=== PATIENT | male | born 1955 | race Caucasian/White ===

== ENCOUNTER 2020-03-09 16:02 | Outpatient (REF) | payer OTHER, SELFPAY ==
[2020-03-09 16:51] LABS: INTERNATIONAL NORM RATIO 2.5 (0.9-1.1); Prothrombin Time 29.5 SEC (10.8-13.0)
== END 2020-03-09 16:03 | disposition home or self-care (01) ==
LOC: HO.LABR 16:02
PROVIDERS: PCP Internal Medicine; Visit Provider Internal Medicine
DX: I48.91 Unspecified atrial fibrillation (principal)
CPT/HCPCS: 36415; 85610

== ENCOUNTER 2020-03-23 16:34 | Outpatient (REF) | payer OTHER, SELFPAY ==
[2020-03-23 17:33] LABS: INTERNATIONAL NORM RATIO 1.8 (0.9-1.1); Prothrombin Time 21.1 SEC (10.8-13.0)
== END 2020-03-23 16:35 | disposition home or self-care (01) ==
LOC: HO.LABR 16:34
PROVIDERS: PCP Internal Medicine; Visit Provider Internal Medicine
DX: I48.91 Unspecified atrial fibrillation (principal)
CPT/HCPCS: 36415; 85610

== ENCOUNTER 2020-04-06 16:45 | Outpatient (REF) | payer OTHER, SELFPAY ==
[2020-04-06 17:48] LABS: MANUAL DIFF FLAG NO
[2020-04-06 17:49] LABS: Basophils Percent Auto 0.4 % (0-2); Eosinophils Absolute Auto 0.1 X10*3/uL (0.0-0.4); Eosinophils Percent Auto 1.4 % (0-4); Hematocrit 45.4 % (42-52); Hemoglobin 15.3 g/dl (14.0-18.0); Imm Gran Abs Auto 0.03 X10*3/uL (0.00-0.03); Imm Gran Pct Auto 0.4 % (0.0-0.4); Lymphocytes Absolute Auto 2.5 X10*3/uL (1.2-4.9); Lymphocytes Percent Auto 31.9 % (20-40); Mean Corpuscular HGB Conc 33.7 g/dl (31.0-36.0); Mean Corpuscular Hemoglobin 32.3 pg (27.0-33.0); Mean Corpuscular Volume 95.8 fL (80-98); Mean Platelet Volume 10.5 fL (9.4-12.4); Monocytes Absolute Auto 0.9 X10*3/uL (0.1-1.2); Neutrophils Absolute Auto 4.4 X10*3/uL (2.0-8.3); Neutrophils Percent Auto 54.9 % (45-73); Platelet Count 250 X10*3/uL (160-400); Red Blood Count 4.74 X10*6/uL (4.60-5.80); Red Cell Distribution Width 12.3 % (11.0-16.0); White Blood Count 7.9 X10*3/uL (4.8-10.8)
[2020-04-06 17:58] LABS: INTERNATIONAL NORM RATIO 2.4 (0.9-1.1); Prothrombin Time 28.6 SEC (10.8-13.0)
[2020-04-06 18:18] LABS: Alanine Aminotransferase 31 U/L (0-40); Albumin Level 4.2 g/dL (3.5-5.0); Alkaline Phosphatase 106 U/L (39-117); Anion Gap 14 (12-20); Aspartate Amino Transferase 28 U/L (5-37); Bilirubin Total 0.6 mg/dL (0.0-1.0); Blood Urea Nitrogen 13 mg/dL (9-16); Calcium 8.6 mg/dL (8.4-10.2); Carbon Dioxide 28 mmol/L (22-29); Chloride 100 mmol/L (96-108); Estimated Glomerular Filt Rate > 60; Glucose Random 88 mg/dL (60-115); Potassium 4.5 mmol/l (3.3-5.1); Sodium 137 mmol/L (135-145); Total Protein 6.9 g/dL (6.5-8.0)
== END 2020-04-06 16:46 | disposition home or self-care (01) ==
LOC: HO.LABR 16:45
PROVIDERS: PCP Internal Medicine; Visit Provider Internal Medicine
DX: I48.91 Unspecified atrial fibrillation (principal); I10 Essential (primary) hypertension; G47.33 Obstructive sleep apnea (adult) (pediatric); E78.00 Pure hypercholesterolemia, unspecified
CPT/HCPCS: 36415; 80053; 85025; 85610

== ENCOUNTER 2020-04-27 16:06 | Outpatient (REF) | payer OTHER, SELFPAY ==
[2020-04-27 16:48] LABS: INTERNATIONAL NORM RATIO 1.8 (0.9-1.1); Prothrombin Time 21.7 SEC (10.8-13.0)
== END 2020-04-27 16:07 | disposition home or self-care (01) ==
LOC: HO.LABR 16:06
PROVIDERS: PCP Internal Medicine; Visit Provider Internal Medicine
DX: I48.91 Unspecified atrial fibrillation (principal)
CPT/HCPCS: 36415; 85610

== ENCOUNTER 2020-05-10 16:15 | Outpatient (REF) | payer OTHER, SELFPAY ==
[2020-05-10 17:37] LABS: INTERNATIONAL NORM RATIO 2.8 (0.9-1.1); Prothrombin Time 33.1 SEC (10.8-13.0)
== END 2020-05-10 16:16 | disposition home or self-care (01) ==
LOC: HO.LABR 16:15
PROVIDERS: PCP Internal Medicine; Visit Provider Internal Medicine
DX: I48.91 Unspecified atrial fibrillation (principal)
CPT/HCPCS: 36415; 85610

== ENCOUNTER 2020-05-24 16:18 | Outpatient (REF) | payer OTHER, SELFPAY ==
[2020-05-24 17:27] LABS: INTERNATIONAL NORM RATIO 3.1 (0.9-1.1); Prothrombin Time 37.7 SEC (10.8-13.0)
== END 2020-05-24 16:19 | disposition home or self-care (01) ==
LOC: HO.LABR 16:18
PROVIDERS: PCP Internal Medicine; Visit Provider Internal Medicine
DX: I48.91 Unspecified atrial fibrillation (principal)
CPT/HCPCS: 36415; 85610

== ENCOUNTER 2020-06-08 15:01 | Outpatient (REF) | payer OTHER, SELFPAY ==
[2020-06-08 15:40] LABS: INTERNATIONAL NORM RATIO 2.6 (0.9-1.1); Prothrombin Time 31.4 SEC (10.8-13.0)
== END 2020-06-08 15:02 | disposition home or self-care (01) ==
LOC: HO.LABR 15:01
PROVIDERS: PCP Internal Medicine; Visit Provider Internal Medicine
DX: I48.91 Unspecified atrial fibrillation (principal)
CPT/HCPCS: 36415; 85610

== ENCOUNTER 2020-06-29 15:47 | Outpatient (REF) | payer OTHER, SELFPAY ==
[2020-06-29 18:38] LABS: INTERNATIONAL NORM RATIO 1.7 (0.9-1.1)
== END 2020-06-29 15:48 | disposition home or self-care (01) ==
LOC: HO.LABR 15:47
PROVIDERS: PCP Internal Medicine; Visit Provider Internal Medicine
DX: I48.91 Unspecified atrial fibrillation (principal)
CPT/HCPCS: 36415; 85610

== ENCOUNTER 2020-07-14 15:36 | Outpatient (REF) | payer OTHER, SELFPAY ==
[2020-07-14 16:19] LABS: Prothrombin Time 24.3 SEC (10.8-13.0)
== END 2020-07-14 15:37 | disposition home or self-care (01) ==
LOC: HO.LABR 15:36
PROVIDERS: PCP Internal Medicine; Visit Provider Internal Medicine
DX: I48.91 Unspecified atrial fibrillation (principal)
CPT/HCPCS: 36415; 85610

== ENCOUNTER 2020-08-02 15:57 | Outpatient (REF) | payer OTHER, SELFPAY ==
[2020-08-02 17:10] LABS: INTERNATIONAL NORM RATIO 2.6 (0.9-1.1); Prothrombin Time 30.6 SEC (10.8-13.0)
== END 2020-08-02 15:58 | disposition home or self-care (01) ==
LOC: HO.LABR 15:57
PROVIDERS: PCP Internal Medicine; Visit Provider Internal Medicine
DX: I48.91 Unspecified atrial fibrillation (principal)
CPT/HCPCS: 36415; 85610

== ENCOUNTER 2020-08-16 16:03 | Outpatient (REF) | payer OTHER, SELFPAY ==
[2020-08-16 17:01] LABS: INTERNATIONAL NORM RATIO 2.3 (0.9-1.1)
== END 2020-08-16 16:04 | disposition home or self-care (01) ==
LOC: HO.LABR 16:03
PROVIDERS: PCP Internal Medicine; Visit Provider Internal Medicine
DX: I48.91 Unspecified atrial fibrillation (principal)
CPT/HCPCS: 36415; 85610

== ENCOUNTER 2020-09-07 15:49 | Outpatient (REF) | payer OTHER, SELFPAY ==
[2020-09-07 16:29] LABS: INTERNATIONAL NORM RATIO 1.9 (0.9-1.1); Prothrombin Time 22.5 SEC (10.8-13.0)
== END 2020-09-07 15:50 | disposition home or self-care (01) ==
LOC: HO.LABR 15:49
PROVIDERS: PCP Internal Medicine; Visit Provider Internal Medicine
DX: I48.91 Unspecified atrial fibrillation (principal)
CPT/HCPCS: 36415; 85610

== ENCOUNTER 2020-09-28 15:58 | Outpatient (REF) | payer OTHER, SELFPAY ==
[2020-09-28 16:52] LABS: Prothrombin Time 23.5 SEC (10.8-13.0)
== END 2020-09-28 15:59 | disposition home or self-care (01) ==
LOC: HO.LABR 15:58
PROVIDERS: PCP Internal Medicine; Visit Provider Internal Medicine
DX: I48.91 Unspecified atrial fibrillation (principal)
CPT/HCPCS: 36415; 85610

== ENCOUNTER 2020-10-18 16:54 | Outpatient (REF) | payer OTHER, SELFPAY ==
[2020-10-18 17:23] LABS: INTERNATIONAL NORM RATIO 1.9 (0.9-1.1); Prothrombin Time 22.6 SEC (10.8-13.0)
== END 2020-10-18 16:55 | disposition home or self-care (01) ==
LOC: HO.LABR 16:54
PROVIDERS: PCP Internal Medicine; Visit Provider Internal Medicine
DX: I48.91 Unspecified atrial fibrillation (principal)
CPT/HCPCS: 36415; 85610

== ENCOUNTER 2020-11-16 15:57 | Outpatient (REF) | payer OTHER, SELFPAY ==
[2020-11-16 16:56] LABS: INTERNATIONAL NORM RATIO 2.4 (0.9-1.1); Prothrombin Time 28.6 SEC (10.8-13.0)
== END 2020-11-16 15:58 | disposition home or self-care (01) ==
LOC: HO.LABR 15:57
PROVIDERS: PCP Internal Medicine; Visit Provider Internal Medicine
DX: I48.91 Unspecified atrial fibrillation (principal)
CPT/HCPCS: 36415; 85610

== ENCOUNTER 2020-12-07 15:50 | Outpatient (REF) | payer OTHER, SELFPAY ==
[2020-12-07 16:20] LABS: INTERNATIONAL NORM RATIO 1.7 (0.9-1.1); Prothrombin Time 20.7 SEC (10.8-13.0)
== END 2020-12-07 15:51 | disposition home or self-care (01) ==
LOC: HO.LABR 15:50
PROVIDERS: PCP Internal Medicine; Visit Provider Internal Medicine
DX: I48.91 Unspecified atrial fibrillation (principal)
CPT/HCPCS: 36415; 85610

== ENCOUNTER 2020-12-19 16:20 | Outpatient (REF) | payer OTHER, SELFPAY ==
[2020-12-19 17:40] LABS: INTERNATIONAL NORM RATIO 2.3 (0.9-1.1); Prothrombin Time 27.2 SEC (9.9-13.0)
== END 2020-12-19 16:21 | disposition home or self-care (01) ==
LOC: HO.LABR 16:20
PROVIDERS: PCP Internal Medicine; Visit Provider Internal Medicine
DX: I48.91 Unspecified atrial fibrillation (principal)
CPT/HCPCS: 36415; 85610

== ENCOUNTER 2021-01-10 15:08 | Outpatient (REF) | payer OTHER, SELFPAY ==
[2021-01-10 15:40] LABS: MANUAL DIFF FLAG NO
[2021-01-10 15:42] LABS: Basophils Percent Auto 0.4 % (0-2); Eosinophils Absolute Auto 0.1 X10*3/uL (0.0-0.4); Eosinophils Percent Auto 1.1 % (0-4); Hematocrit 44.5 % (42-52); Hemoglobin 15.2 g/dl (14.0-18.0); Imm Gran Abs Auto 0.02 X10*3/uL (0.00-0.03); Imm Gran Pct Auto 0.3 % (0.0-0.4); Lymphocytes Absolute Auto 2.1 X10*3/uL (1.2-4.9); Mean Corpuscular HGB Conc 34.2 g/dl (31.0-36.0); Mean Corpuscular Hemoglobin 31.9 pg (27.0-33.0); Mean Corpuscular Volume 93.3 fL (80-98); Mean Platelet Volume 10.1 fL (9.4-12.4); Monocytes Absolute Auto 0.8 X10*3/uL (0.1-1.2); Monocytes Percent Auto 11.3 % (2-11); Neutrophils Percent Auto 56.9 % (45-73); Platelet Count 212 X10*3/uL (160-400); Red Blood Count 4.77 X10*6/uL (4.60-5.80); Red Cell Distribution Width 12.4 % (11.0-16.0); White Blood Count 7.1 X10*3/uL (4.8-10.8)
[2021-01-10 15:47] LABS: INTERNATIONAL NORM RATIO 1.8 (0.9-1.1); Prothrombin Time 20.9 SEC (9.9-13.0)
[2021-01-10 16:08] LABS: Alanine Aminotransferase 29 U/L (0-40); Albumin Level 4.3 g/dL (3.5-5.0); Alkaline Phosphatase 101 U/L (39-117); Anion Gap 15 (12-20); Aspartate Amino Transferase 24 U/L (5-37); Bilirubin Total 0.8 mg/dL (0.0-1.0); Blood Urea Nitrogen 12 mg/dL (9-16); Calcium 9.1 mg/dL (8.4-10.2); Carbon Dioxide 26 mmol/L (22-29); Chloride 102 mmol/L (96-108); Cholesterol 196 mg/dL; Estimated Glomerular Filt Rate > 60; Glucose Fasting 109 mg/dL (60-99); HDL Cholesterol 53 mg/dL; LDL Cholesterol Calculated 115 mg/dl; Potassium 4.7 mmol/L (3.3-5.1); Sodium 138 mmol/L (135-145); Triglycerides 142 mg/dL
[2021-01-10 16:27] LABS: Prostate Specific Antigen 1.49 ng/mL (<0.05-4.0)
== END 2021-01-10 15:09 | disposition home or self-care (01) ==
LOC: HO.LAB 15:08
PROVIDERS: PCP Internal Medicine; Visit Provider Internal Medicine
DX: Z00.00 Encounter for general adult medical examination without abnormal findings (principal); Z12.5 Encounter for screening for malignant neoplasm of prostate
CPT/HCPCS: 36415; 80053; 80061; 84153; 85025; 85610

== ENCOUNTER 2021-02-08 16:02 | Outpatient (REF) | payer OTHER, SELFPAY ==
[2021-02-08 16:55] LABS: Prothrombin Time 22.5 SEC (9.9-13.0)
== END 2021-02-08 16:03 | disposition home or self-care (01) ==
LOC: HO.LABR 16:02
PROVIDERS: PCP Internal Medicine; Visit Provider Internal Medicine
DX: I48.91 Unspecified atrial fibrillation (principal)
CPT/HCPCS: 36415; 85610

== ENCOUNTER 2021-03-16 16:27 | Outpatient (REF) | payer OTHER, SELFPAY ==
[2021-03-16 17:19] LABS: INTERNATIONAL NORM RATIO 1.9 (0.9-1.1); Prothrombin Time 22.2 SEC (9.9-13.0)
== END 2021-03-16 16:28 | disposition home or self-care (01) ==
LOC: HO.LABR 16:27
PROVIDERS: PCP Internal Medicine; Visit Provider Internal Medicine
DX: I48.91 Unspecified atrial fibrillation (principal)
CPT/HCPCS: 36415; 85610

== ENCOUNTER 2021-04-19 15:44 | Outpatient (REF) | payer OTHER, SELFPAY ==
[2021-04-19 16:18] LABS: INTERNATIONAL NORM RATIO 2.4 (0.9-1.1); Prothrombin Time 27.4 SEC (9.9-13.0)
== END 2021-04-19 15:45 | disposition home or self-care (01) ==
LOC: HO.LABR 15:44
PROVIDERS: PCP Internal Medicine; Visit Provider Internal Medicine
DX: I48.91 Unspecified atrial fibrillation (principal)
CPT/HCPCS: 36415; 85610

== ENCOUNTER 2021-05-16 11:57 | Day surgery (SDC) | payer OTHER, SELFPAY ==
[2021-05-09 15:08] VITALS: BMI 37.1
--- NOTE | 2021-05-15 09:56 | P.CONAN_ITS ---
Documented by User: Jing Heath NP 05/15/21 09:58 HPI - Anesthesia Eval Consult details Narrative: 65yo M for Colonoscopy Warfarin for afib [facility] Past Medical History Medical History (Updated 05/09/21 @ 15:01 by Pema Alcantar RN) Atrial fibrillation Elevated cholesterol History of cardioversion HTN (hypertension) Sleep apnea Surgical History Surgical History (Updated 05/09/21 @ 14:55 by Pema Alcantar RN) History of back surgery Social History Social History Patient Tobacco Use Status: Tobacco use Unknown Advance Directives Information Provided: Yes Advance Directives on File: No Meds Allergies Allergy/AdvReac Type Severity Reaction Status Date / Time No Known Allergies Allergy Verified 05/09/21 14:55 [No Known Allergies*] Home Medications Medication Instructions Recorded Confirmed Last Taken Type atorvastatin 40 mg tablet 1 tab PO BEDTIME 05/09/21 05/09/21 Unknown History diltiazem HCl 120 mg 120 mg PO BID 05/09/21 05/09/21 Unknown History capsule,extended release 24 hr lisinopril 40 mg tablet 1 tab PO DAILY 05/09/21 05/09/21 Unknown History multivitamin 1 tab PO DAILY 05/09/21 05/09/21 Unknown History paroxetine HCl 20 mg tablet 1 tab PO DAILY 05/09/21 05/09/21 Unknown History warfarin 3 mg tablet 1 tab PO DAILY 05/09/21 05/09/21 Unknown History Exam Exam Date and Time: May 15, 2021 0956 Height,Weight and Vital Signs: Height 5 ft 6 in Weight 104.326 kg Pertinent Lab Results Pertinent Lab Results: Laboratory Tests 01/10/21 01/10/21 15:23 15:23 WBC 7.1 Hgb 15.2 Hct 44.5 Plt Count 212 Sodium 138 Potassium 4.7 Chloride 102 Carbon Dioxide 26 BUN 12 Creatinine 0.90 Assessment and Plan Assessment Anesthesia Assessment: Chart Reviewed Documented by User: Viviane Manzo MD 05/16/21 13:16 [facility] Active Problems Active Problems: Still in afib. Last dose 05/11/21 Past Medical History Medical History (Updated 05/09/21 @ 15:01 by Pema Alcantar RN) Atrial fibrillation Elevated cholesterol History of cardioversion HTN (hypertension) Sleep apnea Family History Family history of problems with anesthesia: No Surgical History Surgical History (Updated 05/09/21 @ 14:55 by Pema Alcantar RN) History of back surgery History of Problems with Anesthesia: No Social History Social History Patient Tobacco Use Status: Tobacco use Unknown Advance Directives Information Provided: Yes Advance Directives on File: No Meds Allergies Allergy/AdvReac Type Severity Reaction Status Date / Time No Known Allergies Allergy Verified 05/09/21 14:55 [No Known Allergies*] Home Medications Medication Instructions Recorded Confirmed Last Taken Type atorvastatin 40 mg tablet 1 tab PO BEDTIME 05/09/21 05/09/21 Unknown History diltiazem HCl 120 mg 120 mg PO BID 05/09/21 05/09/21 Unknown History capsule,extended release 24 hr lisinopril 40 mg tablet 1 tab PO DAILY 05/09/21 05/09/21 Unknown History multivitamin 1 tab PO DAILY 05/09/21 05/09/21 Unknown History paroxetine HCl 20 mg tablet 1 tab PO DAILY 05/09/21 05/09/21 Unknown History warfarin 3 mg tablet 1 tab PO DAILY 05/09/21 05/09/21 Unknown History Exam Height,Weight and Vital Signs: Height 5 ft 6 in Weight 104.326 kg Vital Signs Temp Pulse Resp BP Pulse Ox 05/16/21 12:27 96.8 F 108 H 18 142/99 H 95 Pertinent Lab Results Pertinent Lab Results: Laboratory Tests 01/10/21 01/10/21 15:23 15:23 WBC 7.1 Hgb 15.2 Hct 44.5 Plt Count 212 Sodium 138 Potassium 4.7 Chloride 102 Carbon Dioxide 26 BUN 12 Creatinine 0.90 Lab Results 05/16/21 Range/Units 12:13 PT 12.1 (9.9-13.0) SEC INR 1.1 (0.9-1.1) Airway Mallampati Class: III TM Dist: >3cm Neck ROM: Full Heart: Irregularly irregular Lungs: CTAB Assessment and Plan Assessment Anesthesia Assessment: Anesthesia Plan Discussed Final Anesthetic Review Family History of Problems with Anesthesia: No History of Problems with Anesthesia: No NPO: Yes ASA Class: III Final Preanesthetic Review: No Changes in Pt Med Stat, Meds/Allgs Chart Reviewed, Consent Obtained/Reviewed and Anes Risks/Benef Reviewed Patient Risk: Intermediate Procedure Risk: Low Assessment/Block/Sedation in SS: Assess/Block/Sedation-SS Anesthetic Plan Anesthetic Plan: MAC: Disposition: Standard PACU
[2021-05-16 12:23] LABS: INTERNATIONAL NORM RATIO 1.1 (0.9-1.1); Prothrombin Time 12.1 SEC (9.9-13.0)
[2021-05-16 12:27] VITALS: BP 142/99; PULSE 108; RESP 18; TEMP 36; O2SAT 95
[2021-05-16] MEDS: Lactated Ringers 1,000 ML 100 ML IVCONT (12:37)
--- NOTE | 2021-05-16 12:53 | MHC.SHP ---
Pre-Procedural Eval Section A Date of Service: 05/16/21 Section B Chief Complaint: screening Details of Present Illness: see H&P no changes Relevant Family History (Specify if Yes): No Relevant Social History: None Present Medications: see Short Stay Collaborative assessment Medical History: No relevant PMH History of Previous Operations: No relevant previous surgery Allergies: Allergies Allergy/AdvReac Type Severity Reaction Status Date / Time No Known Allergies Allergy Verified 05/09/21 14:55 [No Known Allergies*] Review of Systems Sugical H&P ROS: Negative: Constitution, Cardiovascular, Respiratory, Neurological, Psychiatric, Hem-Onc, Allergic/Immunologic, Gastrointestinal, Genitourinary, Musculoskeletal, Integumentary, Endocrine and Eyes/Ears/Nose/Throat Exam Surgical H&P Exam: Normal: HEENT, Normal: Heart, Normal: Lungs, Normal: Extremities, Normal: Abdomen, Normal: Skin and Normal: Neurological Plan Diagnosis/Plan: Unchanged I have reviewed the history and physical and performed a pertinent physical examination on my patient. No changes have occurred unless specified.
--- NOTE | 2021-05-16 13:37 | P.BOP_ITS ---
Brief Operative Note Date of Service: 05/16/21 Pre-op diagnosis: screening Post-op diagnosis: same Procedure: colonoscopy Surgeon: Steven Pink Anesthesia: MAC Was an Dipper Clock And Watch Hands used for this Procedure?: No Estimated blood loss (mL): 0 Pathology: none sent Condition: stable Disposition: PACU
[2021-05-16 13:38] VITALS: BP 110/76; PULSE 113; RESP 16; TEMP 36.1; O2SAT 98
[2021-05-16 14:06] VITALS: BP 131/87; PULSE 76; RESP 18; TEMP 36.2; O2SAT 100
--- NOTE | 2021-05-16 18:55 | OP_ITS ---
SURGEON: Steven Pink MD INDICATIONS: Colon cancer screening and prior history of adenomatous colon polyps. PREOPERATIVE DIAGNOSIS: POSTOPERATIVE DIAGNOSIS: PROCEDURE PERFORMED: Colonoscopy to the terminal ileum. ESTIMATED BLOOD LOSS: COMPLICATIONS: ANESTHESIA: ASSISTANTS: SPECIMENS: MEDICATIONS: Monitored anesthesia care. DESCRIPTION OF PROCEDURE: History and physical performed. The risks and benefits of the procedure were explained to the patient. Informed consent was obtained. The patient was placed in the left lateral decubitus position. A digital rectal exam was performed and was found to be normal. The Olympus pediatric video colonoscope was introduced into the rectum and advanced to the cecum without difficulty. The cecum was identified by transillumination, palpation, and identification of ileocecal valve. Examination was performed and the scope was removed. He tolerated the procedure well and was taken to recovery area in stable condition. FINDINGS: The terminal ileum was normal. The visualized colonic mucosa was normal. There was some stool coating the mucosa throughout the colon, which was washed and suctioned. No polyps were identified. Retroflexed examination showed small internal hemorrhoids. IMPRESSION: Normal colonoscopy. RECOMMENDATIONS: 1. Follow up as needed. 2. Repeat colonoscopy is recommended in 10 years. MD JASON Ortez/BECKY / [id number]
== END 2021-05-16 14:48 | disposition home or self-care (01) ==
PROVIDERS: Nurse Practitioner; PCP Internal Medicine; Visit Provider Internal Medicine Gastroenterology
PROC: 0DJD8ZZ Inspection of Lower Intestinal Tract, Via Natural or Artificial Opening Endoscopic (ICD-10-PCS; CPT 45378; principal; 2021-05-16 13:00)
DX: Z12.11 Encounter for screening for malignant neoplasm of colon (principal); Z86.010 Personal history of colon polyps; K64.8 Other hemorrhoids; G47.33 Obstructive sleep apnea (adult) (pediatric); I10 Essential (primary) hypertension; E78.00 Pure hypercholesterolemia, unspecified; I48.91 Unspecified atrial fibrillation; Z79.01 Long term (current) use of anticoagulants; Z79.899 Other long term (current) drug therapy
CPT/HCPCS: 45378; 36415; 85610

== ENCOUNTER 2021-05-30 16:24 | Outpatient (REF) | payer OTHER, SELFPAY ==
[2021-05-30 17:20] LABS: Prothrombin Time 22.5 SEC (9.9-13.0)
== END 2021-05-30 16:25 | disposition home or self-care (01) ==
LOC: HO.LABR 16:24
PROVIDERS: PCP Internal Medicine; Visit Provider Internal Medicine
DX: I48.91 Unspecified atrial fibrillation (principal)
CPT/HCPCS: 36415; 85610

== ENCOUNTER 2021-07-11 16:10 | Outpatient (REF) | payer OTHER, SELFPAY ==
[2021-07-11 16:50] LABS: INTERNATIONAL NORM RATIO 2.1 (0.9-1.1)
== END 2021-07-11 16:11 | disposition home or self-care (01) ==
LOC: HO.LABR 16:10
PROVIDERS: PCP Internal Medicine; Visit Provider Internal Medicine
DX: I48.91 Unspecified atrial fibrillation (principal)
CPT/HCPCS: 36415; 85610

== ENCOUNTER → 2021-08-07 07:07 | Outpatient (REF) | payer OTHER, SELFPAY ==
--- NOTE | 2021-08-13 08:03 | ECG_ITS ---
Hook-up date: 2021-08-07 15:59:00 Duration: 47:11:00 Test Indications: unspecified atrial fib Medications: [id number] QRS complexes 16 Ventricular ectopics which represent <1 % of total QRS comp. * Supraventricular ectopics which represent % of total QRS comp. * Paced QRS complexs which represent % of total QRS comp. VENTRICULAR ECTOPY 16 Isolated 0 Bigeminal Cycles 0 Couplets 0 Runs 0 Beats in Runs * Beats LONGEST at * BPM at :: -- * Beats FASTEST at * BPM at :: -- SUPRAVENTRICULAR ECTOPY * Isolated * Couplets * Runs * Beats in Runs * Beats LONGEST at * BPM at :: -- * Beats FASTEST at * BPM at :: -- HEART RATES 43 MIN at 03:59:12 2021-08-08 72 AVG 144 MAX at 14:25:31 2021-08-08 LONGEST RR 2.0880 secs at 04:25:47 2021-08-08 S-T LEVELS Channel 1 - 128 mm at 15:59:00 2021-08-07 - 128 mm at 15:59:00 2021-08-07 Channel 2 - 128 mm at 15:59:00 2021-08-07 - 128 mm at 15:59:00 2021-08-07 Channel 3 - 128 mm at 03:51:81 -- - 128 mm at 03:51:81 Basic rhythm Atrial fibrillation Average HR is 72 bpm, well controlled overall Rare Premature ventricular complexes Patient did not report any symptoms in the diary Referred By: Abhishek Villa Overread By: NIKOLAY BEYER MD
== END ==
LOC: HO.CARD 07:07
PROVIDERS: Visit Provider Internal Medicine
DX: I48.91 Unspecified atrial fibrillation (principal)
CPT/HCPCS: 93226

== ENCOUNTER → 2021-08-07 14:54 | Outpatient (BNVA) | payer OTHER, SELFPAY | PROVIDERS: PCP Internal Medicine; Referring Provider Internal Medicine; Visit Provider Internal Medicine ==

== ENCOUNTER 2021-08-13 15:57 | Outpatient (REF) | payer OTHER, SELFPAY ==
[2021-08-13 16:28] LABS: INTERNATIONAL NORM RATIO 1.5 (0.9-1.1); Prothrombin Time 17.6 SEC (9.9-13.0)
== END 2021-08-13 15:58 | disposition home or self-care (01) ==
LOC: HO.LABR 15:57
PROVIDERS: PCP Internal Medicine; Visit Provider Internal Medicine
DX: I48.91 Unspecified atrial fibrillation (principal)
CPT/HCPCS: 36415; 85610

== ENCOUNTER 2021-08-20 15:53 | Outpatient (REF) | payer OTHER, SELFPAY ==
--- NOTE | ~2021-08-20 | XR_ITS ---
EXAMINATION: XR FOOT, LEFT CLINICAL INFORMATION: Left heel pain COMPARISON: None TECHNIQUE: AP, lateral, and oblique views of the left foot. FINDINGS: The bones and soft tissues are normal. No fracture. Alignment is anatomic. Joint spaces are maintained. XR/XR foot LT min 3V IMPRESSION: Unremarkable left foot exam.
== END 2021-08-20 15:54 | disposition home or self-care (01) ==
LOC: HO.XRAY 15:53
PROVIDERS: PCP Internal Medicine; Visit Provider Internal Medicine
DX: M79.672 Pain in left foot (principal)
CPT/HCPCS: 73630

== ENCOUNTER → 2021-08-21 14:43 | Outpatient (REF) | payer OTHER, SELFPAY ==
--- NOTE | 2021-08-21 14:56 | CA_ITS ---
Transthoracic Echocardiogram Patient (Last, First, Middle): Jese Benavides, Gender: Male Date of : 1955 Age: 65 Procedure Date: 08/21/2021 Procedure Type: Transthoracic Echocardiogram Location: OP Height: 167.64 cm Weight: 99.79 kg BSA: 2.08 m2 Heart Rate: bpm BP: 120 / 85 mmHg Sequencing Machine Operator: Referring MD: Abhishek Villa MD Symptoms: PERSISTENT AFIB Study Quality: Fair ECG Rhythm: Atrial Fibrillation Conclusions: - The left ventricular systolic function is low normal. The visually estimated ejection fraction is between 50-55%. - No obvious valvular pathology seen on this study. - There is mild dilatation of the sinuses of Valsalva measuring 4.30 cm and mild dilatation of the ascending aorta measuring 4.00 cm. Findings Left Ventricle Normal left ventricular cavity size. There is mildly increased left ventricular wall thickness. The left ventricular systolic function is low normal. The visually estimated ejection fraction is between 50-55%. Diastolic function is indeterminate on the basis of available data. Right Ventricle Normal right ventricular cavity size and systolic function. Atria Both atria are normal in size. Aortic Valve There is a normal trileaflet aortic valve. There is no aortic valve stenosis. There is no aortic valve regurgitation. Mitral Valve The mitral valve appears normal. There is trace mitral valve regurgitation. There is no mitral valve stenosis. Pulmonic Valve The pulmonic valve was not well visualized. Tricuspid Valve There is trace tricuspid valve regurgitation. Tricuspid regurgitation envelope is inadequate for calculation of right ventricular systolic pressure. Great Vessels There is mild dilatation of the sinuses of Valsalva measuring 4.30 cm and mild dilatation of the ascending aorta measuring 4.00 cm. Venous The inferior vena cava is normal in size and collapses greater than 50% with inspiration. Pericardium/Pleural There is no evidence of pericardial effusion. Prior Study Comparison No significant change compared to prior study dated: 09/16/2019. Recommendations, Care & Conclusions No obvious valvular pathology seen on this study. Measurements 2D Linear Measurements IVSd: 1.08 0.6-0.9/0.6-1.0 cm LVIDd: 4.97 3.9-5.3/4.2-5.9 cm LVIDd Index: 2.39 2.4-3.2/2.2-3.1 cm/m2 LVIDs: 3.03 2.0-3.6 cm LVPWd: 1.15 0.7-1.1 cm LA Diam: 4.00 2.7-3.8/3.0-4.0 cm LAIDs Index: 1.92 1.5-2.3 cm/m2 LV Mass: 260.50 67-162/88-224 g LV Mass Index: 125.24 43-95/49-115 g/m2 LVOT Diam: 2.30 3.0+(-)1.3 cm RVOT Diam: 3.00 1.7-2.3 cm 2D Systolic Function EF 4C: 43.70 >55% EF 2C: 43.10 >55% Mitral Valve MV Pk E: 0.70 MV Decel Time: 188.00 E'Lateral: 8.27 E'Medial: 7.72 E/E' Med: 9.10 E/E' Lat: 8.50 PHT: 55.00 MVA PHT: 4.00 Decel Treasure: 3.74 Aortic Valve AoV Pk Taran: 0.89 AoV Mn Taran: 0.60 AoV VTI: 0.16 AoV Pk Grad: 3.00 Aov Mn Grad: 2.00 FRANTZ Cont.VTI: 3.33 LVOT LVOT Pk Taran: 0.65 LVOT Mn Taran: 0.46 LVOT VTI: 0.13 LVOT Pk Grad: 2.00 LVOT Mn Grad: 1.00 LVOT Diam: 2.30 LVOT Area: 4.15 Diastolic Function MV Pk E: 0.70 E'Medial: 7.72 E/E' Med: 9.10 E' Laterial: 8.27 E/E' Lat: 8.50 Tricuspid Valve TR Pk Taran: 4.00 RVOT: 3.00 RVSP: 7.00 Great Vessels Aorta Sinus of Valsalva: 4.30 2.0-3.[address] Ridge: 3.70 1.7-3.4 cm Ao Asc: 4.00 2.1-3.4 cm Pulmonary Valve PV Pk Taran: 0.69 Peak PV Grad: 2.00 Updated in Other Vendor System with Status of Final Abhishek Villa MD electronically signed on 08/23/2021 12:07:31 PM with status of Final
== END ==
LOC: HO.CARD 14:43
PROVIDERS: PCP Internal Medicine; Visit Provider Internal Medicine
DX: I48.19 Other persistent atrial fibrillation (principal)
CPT/HCPCS: 93306

== ENCOUNTER 2021-08-22 15:32 | Outpatient (REF) | payer OTHER, SELFPAY ==
[2021-08-22 15:56] LABS: Prothrombin Time 22.6 SEC (9.9-13.0)
== END 2021-08-22 15:33 | disposition home or self-care (01) ==
LOC: HO.LABR 15:32
PROVIDERS: PCP Internal Medicine; Visit Provider Internal Medicine
DX: I48.91 Unspecified atrial fibrillation (principal)
CPT/HCPCS: 36415; 85610

== ENCOUNTER → 2021-09-11 14:49 | Outpatient (BNVA) | payer OTHER, SELFPAY | PROVIDERS: PCP Internal Medicine; Referring Provider Internal Medicine; Visit Provider Internal Medicine | DX: I48.19 Other persistent atrial fibrillation (principal); I10 Essential (primary) hypertension; G47.31 Primary central sleep apnea; I77.810 Thoracic aortic ectasia; Z79.01 Long term (current) use of anticoagulants; Z79.899 Other long term (current) drug therapy | CPT/HCPCS: 93005; 99212 ==

== ENCOUNTER 2021-09-17 10:58 | Outpatient (REF) | payer OTHER, SELFPAY ==
[2021-09-17 12:24] LABS: INTERNATIONAL NORM RATIO 1.1 (0.9-1.1); Prothrombin Time 12.1 SEC (9.9-13.0)
== END 2021-09-17 10:59 | disposition home or self-care (01) ==
LOC: HO.LAB 10:58
PROVIDERS: PCP Internal Medicine; Visit Provider Internal Medicine
DX: I48.19 Other persistent atrial fibrillation (principal)
CPT/HCPCS: 36415; 85610

== ENCOUNTER 2022-04-18 16:14 | Outpatient (REF) | payer OTHER, SELFPAY ==
--- NOTE | ~2022-04-18 | XR_ITS ---
EXAMINATION: XR WRIST, RIGHT CLINICAL INFORMATION: Right wrist pain COMPARISON: None TECHNIQUE: PA, lateral, and oblique views of the right wrist. FINDINGS: The bones and soft tissues are normal. No fracture. Alignment is anatomic with normal joint spaces. No erosions or abnormal soft tissue calcifications. XR/XR wrist RT min 3V IMPRESSION: Normal right wrist.
== END 2022-04-18 16:15 | disposition home or self-care (01) ==
LOC: HO.XRAY 16:14
PROVIDERS: PCP Internal Medicine; Visit Provider Internal Medicine
DX: M25.531 Pain in right wrist (principal)
CPT/HCPCS: 73110

== ENCOUNTER 2022-07-08 13:07 | Outpatient (REF) | payer OTHER, SELFPAY ==
[2022-07-08 13:20] LABS: MANUAL DIFF FLAG NO
[2022-07-08 13:25] LABS: Basophils Percent Auto 0.4 % (0-2); Eosinophils Absolute Auto 0.1 X10*3/uL (0.0-0.4); Eosinophils Percent Auto 1.1 % (0-4); Hematocrit 45.5 % (42.0-52.0); Hemoglobin 15.4 g/dl (14.0-18.0); Imm Gran Abs Auto 0.04 X10*3/uL (0.00-0.03); Imm Gran Pct Auto 0.5 % (0.0-0.4); Lymphocytes Absolute Auto 2.5 X10*3/uL (1.2-4.9); Lymphocytes Percent Auto 31.1 % (20-40); Mean Corpuscular HGB Conc 33.8 g/dl (31.0-36.0); Mean Corpuscular Hemoglobin 32.1 pg (27.0-33.0); Mean Corpuscular Volume 94.8 fL (80.0-98.0); Mean Platelet Volume 9.8 fL (9.4-12.4); Monocytes Absolute Auto 0.8 X10*3/uL (0.1-1.2); Monocytes Percent Auto 9.2 % (2-11); Neutrophils Absolute Auto 4.7 x10*3/uL (2.0-8.3); Neutrophils Percent Auto 57.7 % (45-73); Platelet Count 206 X10*3/uL (160-400); Red Cell Distribution Width 12.2 % (11.0-16.0); White Blood Count 8.1 X10*3/uL (4.8-10.8)
[2022-07-08 13:58] LABS: Alanine Aminotransferase 44 U/L (0-40); Albumin Level 4.1 g/dL (3.5-5.0); Alkaline Phosphatase 102 U/L (39-117); Anion Gap 15 (12-20); Aspartate Amino Transferase 31 U/L (5-37); Bilirubin Total 0.8 mg/dL (0.0-1.0); Blood Urea Nitrogen 11 mg/dL (9-16); Calcium 9.1 mg/dL (8.4-10.2); Carbon Dioxide 27 mmol/L (22-29); Chloride 102 mmol/L (96-108); Cholesterol 203 mg/dL; Estimated Glomerular Filt Rate > 60; Glucose Fasting 119 mg/dL (60-99); HDL Cholesterol 59 mg/dL; LDL Cholesterol Calculated 107 mg/dl; Potassium 5.1 mmol/L (3.3-5.1); Sodium 139 mmol/L (135-145); Total Protein 6.7 g/dL (6.5-8.0); Triglycerides 189 mg/dL
[2022-07-08 14:12] LABS: Prostate Specific Antigen Scr 1.95 ng/mL (<0.05-4.0)
== END 2022-07-08 13:08 | disposition home or self-care (01) ==
LOC: HO.LAB 13:07
PROVIDERS: PCP Internal Medicine; Visit Provider Internal Medicine
DX: Z00.00 Encounter for general adult medical examination without abnormal findings (principal)
CPT/HCPCS: 36415; 80053; 80061; 84153; 85025

== ENCOUNTER → 2022-08-23 13:03 | Outpatient (REF) | payer OTHER, SELFPAY ==
--- NOTE | 2022-08-23 13:06 | CA_ITS ---
Transthoracic Echocardiogram Patient (Last, First, Middle): Jese Benavides, Gender: Male Date of : 1955 Age: 66 Procedure Date: 08/23/2022 Procedure Type: Transthoracic Echocardiogram Location: OP Height: 167.64 cm Weight: 99.79 kg BSA: 2.08 m2 Heart Rate: bpm BP: 132 / 64 mmHg Manual Lathe Machinist: SB Referring MD: Abhishek Villa MD Symptoms: I48.19 - Other persistent atrial fibrillation Study Quality: Adequate w contrast ECG Rhythm: Atrial Fibrillation Conclusions: - Normal left ventricular size, thickness, and systolic function. The visually estimated ejection fraction is between 55-60%. - Mildly increased right ventricular cavity size. There is mildly decreased right ventricular systolic function. - There is mild dilatation of the sinuses of Valsalva measuring 4.20 cm and mild dilatation of the ascending aorta measuring 4.10 cm. Findings Procedure Information Contrast agent, definity, is being given per protocol without apparent complications. The quality of the study was technically difficult. The study quality is limited by patients body habitus. Left Ventricle Normal left ventricular size, thickness, and systolic function. The visually estimated ejection fraction is between 55-60%. There is no evidence of regional wall motion abnormalities. Diastolic function is indeterminate on the basis of available data. Right Ventricle Mildly increased right ventricular cavity size. There is mildly decreased right ventricular systolic function. Atria The left atrium is mildly dilated. The right atrium is mildly dilated. Aortic Valve There is a normal trileaflet aortic valve. There is mild calcification of the aortic valve. There is no aortic valve stenosis. There is no aortic valve regurgitation. Mitral Valve Normal mitral valve structure and function. There is no mitral valve regurgitation. There is no mitral valve stenosis. Pulmonic Valve The pulmonic valve is likely normal. Tricuspid Valve Normal tricuspid valve structure and function. Tricuspid regurgitation envelope is inadequate for calculation of right ventricular systolic pressure. Normal right atrial pressure. Great Vessels There is mild dilatation of the sinuses of Valsalva measuring 4.20 cm and mild dilatation of the ascending aorta measuring 4.10 cm. Venous The inferior vena cava is normal in size and collapses greater than 50% with inspiration. Pericardium/Pleural There is no evidence of pericardial effusion. Measurements 2D Linear Measurements IVSd: 0.99 0.6-0.9/0.6-1.0 cm LVIDd: 4.76 3.9-5.3/4.2-5.9 cm LVIDd Index: 2.29 2.4-3.2/2.2-3.1 cm/m2 LVIDs: 3.08 2.0-3.6 cm LVPWd: 0.71 0.7-1.1 cm LA Diam: 4.40 2.7-3.8/3.0-4.0 cm LAIDs Index: 2.12 1.5-2.3 cm/m2 LV Mass: 167.68 67-162/88-224 g LV Mass Index: 80.62 43-95/49-115 g/m2 LVOT Diam: 2.30 3.0+(-)1.3 cm 2D Systolic Function EF 4C: 64.00 >55% EF 2C: 54.90 >55% EF BiP: 59.00 >55% Mitral Valve MV Pk E: 0.76 Aortic Valve AoV Pk Taran: 0.74 AoV Pk Grad: 2.00 FRANTZ: 3.30 LVOT LVOT Pk Taran: 0.59 LVOT Mn Taran: 0.42 LVOT VTI: 0.11 LVOT Pk Grad: 1.00 LVOT Mn Grad: 1.00 LVOT Diam: 2.30 LVOT Area: 4.15 Diastolic Function MV Pk E: 0.76 Right Ventricle TAPSE (mm): 13.60 TVS' Taran: 8.70 Tricuspid Valve RA Press: 3.00 Great Vessels Aorta Sinus of Valsalva: 4.20 2.0-3.5 cm Ao Asc: 4.10 2.1-3.4 cm Pulmonary Valve PV Pk Taran: 0.62 Peak PV Grad: 2.00 Updated in Other Vendor System with Status of Final Roscoe Becerril MD electronically signed on 08/26/2022 12:13:36 AM with status of Final
--- NOTE | 2022-08-23 13:06 | HM_ITS ---
Conclusion: 1. Patient was monitored for total period of 2 days and 23 hours 2. Baseline was atrial fibrillation with average heart rate of 76 beats per minute with good rate control 3. No significant pauses noted 4. Very rare PVCs noted 5. No patient reported events MTDD
== END ==
LOC: HO.CARD 13:03
PROVIDERS: PCP Internal Medicine; Visit Provider Internal Medicine
DX: I48.19 Other persistent atrial fibrillation (principal)
CPT/HCPCS: 93242; 93306; Q9957

== ENCOUNTER → 2022-10-16 14:09 | Outpatient (BNVA) | payer MEDICARE, MEDICAID, SELFPAY | PROVIDERS: PCP Internal Medicine; Referring Provider Internal Medicine; Visit Provider Internal Medicine | DX: I48.19 Other persistent atrial fibrillation (principal); I10 Essential (primary) hypertension; I77.810 Thoracic aortic ectasia; G47.31 Primary central sleep apnea | CPT/HCPCS: 99212 ==

== ENCOUNTER 2023-04-09 13:33 | Emergency (ER) | payer MEDICARE, MEDICAID, SELFPAY ==
--- NOTE | ~2023-04-09 | CT_ITS ---
STUDY: Unenhanced CT of the head and cervical spine INDICATION: Fall with head strike COMPARISON: None TECHNIQUE: This CT examination was performed using dose optimization techniques as appropriate, variously including the following: *Automated exposure control *Adjustment of mA and/or kV according to patient size (this includes techniques or standardized protocols for targeted exams where dose is matched to indication/reason for exam; i.e. extremities or head) *Use of iterative reconstruction technique TOTAL EXAM DLP: 806 mGy-cm FINDINGS: HEAD: Mild volume loss. No intracranial hemorrhage, extra-axial fluid collections, cranial fractures or soft tissue hematomas identified status post fall. No evolving infarct, mass lesion, mass effect or midline shift. Intraorbital structures are unremarkable.. Mild frontal sinus mucosal thickening, otherwise sinuses and mastoids free of disease CERVICAL SPINE: No fracture, traumatic subluxation or prevertebral soft tissue swelling. Trace retrolisthesis C3 on C4 with C3-C4 disc space narrowing and bilateral severe neuroforaminal narrowings. C6-C7 disc space narrowing and spurring. No spinal canal narrowing. Adenoids and tonsils are mildly prominent. Parotid and submandibular glands are unremarkable. No pathologic lymphadenopathy. Unremarkable thyroid. CT/CT head/brain wo IV con IMPRESSION: No acute intra-abdominal cranial or cervical spine pathology. Cervical spondylosis.
--- NOTE | ~2023-04-09 | CT_ITS ---
STUDY: Unenhanced CT of the head and cervical spine INDICATION: Fall with head strike COMPARISON: None TECHNIQUE: This CT examination was performed using dose optimization techniques as appropriate, variously including the following: *Automated exposure control *Adjustment of mA and/or kV according to patient size (this includes techniques or standardized protocols for targeted exams where dose is matched to indication/reason for exam; i.e. extremities or head) *Use of iterative reconstruction technique TOTAL EXAM DLP: 806 mGy-cm FINDINGS: HEAD: Mild volume loss. No intracranial hemorrhage, extra-axial fluid collections, cranial fractures or soft tissue hematomas identified status post fall. No evolving infarct, mass lesion, mass effect or midline shift. Intraorbital structures are unremarkable.. Mild frontal sinus mucosal thickening, otherwise sinuses and mastoids free of disease CERVICAL SPINE: No fracture, traumatic subluxation or prevertebral soft tissue swelling. Trace retrolisthesis C3 on C4 with C3-C4 disc space narrowing and bilateral severe neuroforaminal narrowings. C6-C7 disc space narrowing and spurring. No spinal canal narrowing. Adenoids and tonsils are mildly prominent. Parotid and submandibular glands are unremarkable. No pathologic lymphadenopathy. Unremarkable thyroid. CT/CT cervical spine wo IV con IMPRESSION: No acute intra-abdominal cranial or cervical spine pathology. Cervical spondylosis.
--- NOTE | ~2023-04-09 | XR_ITS ---
EXAMINATION: XR LUMBOSACRAL SPINE CLINICAL INFORMATION: Fall COMPARISON: Previous x-ray May 2000 and TECHNIQUE: Three views of the lumbosacral spine. FINDINGS: Bone alignment is normal. No fracture or dislocation. Degenerative disc disease L5-S1. Lower lumbar spine facet arthritis. Atherosclerotic disease. XR/XR lumbar spine 2-3V IMPRESSION: No fracture or dislocation. Degenerative changes.
--- NOTE | ~2023-04-09 | XR_ITS ---
EXAMINATION: XR HIP, LEFT CLINICAL INFORMATION: Fall COMPARISON: None available. TECHNIQUE: Two views of the left hip and one view of the pelvis. FINDINGS: No fracture. Alignment is anatomic. Hip joint space is maintained. Soft tissues are unremarkable. XR/XR hip LT w PEL1V IMPRESSION: Normal left hip.
--- NOTE | 2023-04-09 14:24 | ED_ITS ---
HPI - Fall General Chief Complaint: Fall Stated Complaint: fall 04/08/ rib pain Time Seen by Provider: 04/09/23 16:00 Source: patient and RN notes reviewed Mode of arrival: ambulatory Limitations: no limitations History of Present Illness HPI Narrative: 67-year-old male presents for evaluation after a fall happened yesterday approximately 24 hours ago Patient is on Eliquis for history of atrial fibrillation He reports that he is was walking in the bed of his pickup truck when he fell off the back because he thought he had more space and he did He landed on his left side He reports striking the left side is head but denies loss of consciousness Patient complains of left-sided rib pain and left-sided lower back/hip pain that is worse with ambulating His rib pain is worse with taking a deep breath No other complaints or concerns at this time Related Data Home Medications Medication Instructions Recorded Confirmed multivitamin 1 tab PO DAILY 05/09/21 10/16/22 atorvastatin 40 mg tablet 40 mg PO BEDTIME 09/11/21 10/16/22 lisinopril 40 mg tablet 40 mg PO DAILY 09/11/21 10/16/22 paroxetine HCl 30 mg tablet 30 mg PO DAILY 10/18/22 Previous Rx's Medication Instructions Recorded apixaban 5 mg tablet (Eliquis) 5 mg PO BID #180 tabs 09/13/21 diltiazem HCl 120 mg capsule,24 120 mg PO DAILY #90 caps 07/23/22 hr,extended release tramadol 50 mg tablet 50 mg PO Q6H PRN severe pain 04/09/23 (scale score 7-10) #14 tabs Allergies Allergy/AdvReac Type Severity Reaction Status Date / Time No Known Allergies Allergy Verified 04/09/23 14:30 [No Known Allergies*] Review of Systems 2 Constitutional: Constitutional: Denies fever(s) and Denies headache(s) Eyes: Eyes: Denies blurry vision ENT: Denies headache(s) Cardiovascular: Cardiovascular: Reports chest pain (Left chest wall pain) Respiratory: Respiratory: Denies cough and Reports pain on inspiration Gastrointestinal: Gastrointestinal: Denies abdominal pain Genitourinary: Genitourinary: Denies hematuria and Denies dysuria Musculoskeletal: Musculoskeletal: Reports back pain and Reports arthralgias Integumentary/Breasts: Skin/Breast: Denies unusual bruising Neurologic: Denies headache(s) PMFSH Past Medical History Medical History (Updated 04/09/23 @ 18:29 by Devaughn Luna) Persistent atrial fibrillation Sleep apnea Elevated cholesterol HTN (hypertension) Atrial fibrillation History of cardioversion Surgical History History of back surgery Family History Family History Father No problems noted. Mother No problems noted. Social History Social History Patient Tobacco Use Status: Never used Tobacco Advance Directives: No Physical Exam 2 Vital Signs: Vital Signs: Last Vital Signs Temp 98.2 F 04/09/23 14:25 Pulse 96 04/09/23 14:25 Resp 18 04/09/23 14:25 BP 144/73 H 04/09/23 14:25 Pulse Ox 95 04/09/23 14:25 O2 Del Method Room Air 04/09/23 14:25 BMI result Body Mass Index 34.7 Const: General: healthy appearing, comfortable, no acute distress, alert and awake Nutritional Appearance: well nourished Orientation/consciousness: p atient oriented x3 HEENT: Head: Yes normocephalic and Yes atraumatic Eyes: Eyelids: Yes eyelids normal Conjunctivae: conjunctivae normal S clerae: sclerae normal Corneas: corneas normal Pupils: Equal, round and reactive pupils present EOM: EOMs intact bilaterally Neck: Neck: Yes full ROM Chest: Other: No tenderness in the anterior axillary line or mid axillary line in the area where the patient indicates his pain Chest palpation & inspection: no crepitus Resp: Effort & Inspection: normal respiratory effort, able to speak in complete sentences and not labored Back/Spine/Pelvis: Other: Patient has very minimal tenderness in the left sacroiliac joint. No deformity noted. Skin: Other: No open wounds or bruising General skin exam: no rashes or lesions noted and elasticity normal Neuro: General: patient oriented x3 Cranial nerves: Yes Equal, round and reactive pupils present and Yes Bilaterally intact EOM present Cognition (Neuro): normal cognition Course Course Course Narrative: RME - 67 yo with history of afib on eliquis, HTN who presents to the ER for evaluation of left sided rib pain and left hip pain after he fell off of a tailgate last night. +head strike but no LOC. Hit the left side of his body on the cement. Pain in the left hip w/ ambulation. Tender left lateral ribs and LUQ on exam, no flank ecchymosis. Plan: lab workup, CT head/neck given headstrike and Eliquis, defer other imaging to Main ER provider Medications Administered Discontinued Medications Generic Name Dose Route Start Last Admin Trade Name Liset PRN Reason Stop Dose Admin Tramadol HCl 50 mg 04/09/23 16:26 04/09/23 16:37 Tramadol Hcl 50 Mg Tablet PO 04/09/23 16:27 50 mg ONCE ONE Administration Medical Decision Making Medical Decision Making [facility] Narrative: 67-year-old male presents for evaluation after a mechanical fall. He had CT scan of brain and cervical spine ordered given head strike. He has no neuro deficits on exam. Patient has some pain to the left flank/rib area will get x- rays of the left ribs with PA chest. Will also get left hip and lumbar spine x- rays. Patient had labs ordered in triage that are without significant abnormalities. Coags are slightly elevated but this is expected to the patient's Eliquis use Differential Diagnosis Differential Diagnoses: The differential diagnosis associated with the presentation includes Mechanical fall Contusion Concussion Intracranial hemorrhage Rib fracture Hematoma Muscle strain Lab Data [facility] Lab Attestation statement: I reviewed the patient's lab results. No leukocytosis or anemia. Normal platelet count. No electrolyte abnormalities. 04/09/23 14:32 04/09/23 14:32 Labs: Lab Results 04/09/23 04/09/23 Range/Units 14:32 15:35 WBC 9.5 (4.8-10.8) X10*3/uL RBC 5.02 (4.60-5.80) X10*6/uL Hgb 16.0 (14.0-18.0) g/dl Hct 46.8 (42.0-52.0) % MCV 93.2 (80.0-98.0) fL MCH 31.9 (27.0-33.0) pg MCHC 34.2 (31.0-36.0) g/dl RDW 12.4 (11.0-16.0) % Plt Count 217 (160-400) X10*3/uL MPV 9.6 (9.4-12.4) fL Immature Gran % (Auto) 0.2 (0.0-0.4) % Neut % (Auto) 68.2 (45-73) % Lymph % (Auto) 21.3 (20-40) % [place] % (Auto) 9.8 (2-11) % Eos % (Auto) 0.3 (0-4) % Baso % (Auto) 0.2 (0-2) % Lymph # (Auto) 2.0 (1.2-4.9) X10*3/uL [place] # (Auto) 0.9 (0.1-1.2) X10*3/uL Eos # (Auto) 0.0 (0.0-0.4) X10*3/uL Baso # (Auto) 0.0 (0.0-0.2) X10*3/uL Abs Immat Gran (auto) 0.02 (0.00-0.03) X10*3/uL Absolute Neuts (auto) 6.5 (2.0-8.3) x10*3/uL Absolute Nucleated RBC 0.000 (0.0-0.012) X10*3/uL Nucleated RBC % (auto) 0.0 (0.0-0.2) /100WBC PT 14.6 H (11.1-13.3) SEC INR 1.2 H (0.9-1.1) APTT 34.8 (26.0-36.4) SEC Sodium 141 (135-145) mmol/L Potassium 5.0 (3.3-5.1) mmol/L Chloride 103 (96-108) mmol/L Carbon Dioxide 27 (22-29) mmol/L Anion Gap 16 (12-20) BUN 10 (9-16) mg/dL Creatinine 0.95 (0.5-1.4) mg/dL Estim Creat Clear Calc 84.7 Estimated GFR > 60 Random Glucose 123 H (60-115) mg/dL Calcium 10.4 H D (8.4-10.2) mg/dL Magnesium 2.4 (1.6-2.6) mg/dL Total Bilirubin 0.5 (0.0-1.0) mg/dL Direct Bilirubin 0.2 (0.0-0.5) mg/dL AST 26 (5-37) U/L ALT 34 (0-40) U/L Alkaline Phosphatase 103 (39-117) U/L Total Protein 7.7 (6.5-8.0) g/dL Albumin 4.4 (3.5-5.0) g/dL Urine Color Yellow Urine Appearance Clear Urine pH 7.0 (5.0-9.0) Ur Specific [place] 1.020 (1.005-1.025) Urine Protein Negative (Neg-Trace) mg/dL Urine Glucose (UA) Negative (Negative) mg/dL Urine Ketones Trace (Negative) mg/dL Urine Blood Negative (Negative) Urine Nitrite Negative (Negative) Ur Leukocyte Esterase Trace H (Negative) Urine RBC 0-2 (0-2) /HPF Urine WBC 0-5 (0-5) /HPF Ur Squamous Epith Cells 0-2 (0-2) /HPF Urine Bacteria None Seen (None Seen) Hyaline Casts 0-2 (0-2) /LPF Discharge Plan Discharge Clinical Impression: Low back pain, Left flank pain Patient Disposition: Home, Self-Care Instructions: Back Pain (ED) Additional Instructions: Your workup the emergency department today was reassuring. This includes your head CT, neck CT as well as x-rays of your left flank and lower back. Take the tramadol as needed for severe equal breakthrough pain. This may make you sleepy, do not drink alcohol or drive after taking it You may also use Tylenol for pain Prescriptions: New tramadol 50 mg tablet 50 mg PO Q6H PRN (Reason: severe pain (scale score 7-10)) Qty: 14 0RF No Action Eliquis 5 mg tablet 5 mg PO BID Qty: 180 3RF diltiazem HCl 120 mg capsule,extended release 24 hr 120 mg PO DAILY Qty: 90 3RF paroxetine HCl 30 mg tablet 30 mg PO DAILY multivitamin Tablet 1 tab PO DAILY atorvastatin 40 mg tablet 40 mg PO BEDTIME lisinopril 40 mg tablet 40 mg PO DAILY
[2023-04-09 14:25] VITALS: BP 144/73; PULSE 96; RESP 18; TEMP 36.8; O2SAT 95; BMI 34.7
[2023-04-09 14:38] LABS: MANUAL DIFF FLAG NO
[2023-04-09 14:40] LABS: Basophils Percent Auto 0.2 % (0-2); Eosinophils Percent Auto 0.3 % (0-4); Hematocrit 46.8 % (42.0-52.0); Imm Gran Abs Auto 0.02 X10*3/uL (0.00-0.03); Imm Gran Pct Auto 0.2 % (0.0-0.4); Lymphocytes Percent Auto 21.3 % (20-40); Mean Corpuscular HGB Conc 34.2 g/dl (31.0-36.0); Mean Corpuscular Hemoglobin 31.9 pg (27.0-33.0); Mean Corpuscular Volume 93.2 fL (80.0-98.0); Mean Platelet Volume 9.6 fL (9.4-12.4); Monocytes Absolute Auto 0.9 X10*3/uL (0.1-1.2); Monocytes Percent Auto 9.8 % (2-11); Neutrophils Absolute Auto 6.5 x10*3/uL (2.0-8.3); Neutrophils Percent Auto 68.2 % (45-73); Platelet Count 217 X10*3/uL (160-400); Red Blood Count 5.02 X10*6/uL (4.60-5.80); Red Cell Distribution Width 12.4 % (11.0-16.0); White Blood Count 9.5 X10*3/uL (4.8-10.8)
[2023-04-09 14:48] LABS: INTERNATIONAL NORM RATIO 1.2 (0.9-1.1); Prothrombin Time 14.6 SEC (11.1-13.3)
[2023-04-09 14:51] LABS: Partial Thromboplastin Time 34.8 SEC (26.0-36.4)
[2023-04-09 14:54] LABS: Alanine Aminotransferase 34 U/L (0-40); Albumin Level 4.4 g/dL (3.5-5.0); Alkaline Phosphatase 103 U/L (39-117); Anion Gap 16 (12-20); Aspartate Amino Transferase 26 U/L (5-37); Bilirubin Direct 0.2 mg/dL (0.0-0.5); Bilirubin Total 0.5 mg/dL (0.0-1.0); Blood Urea Nitrogen 10 mg/dL (9-16); Calcium 10.4 mg/dL (8.4-10.2); Carbon Dioxide 27 mmol/L (22-29); Chloride 103 mmol/L (96-108); Creatinine Clr Calc Pharmacy 84.7; Estimated Glomerular Filt Rate > 60; Glucose Random 123 mg/dL (60-115); Magnesium 2.4 mg/dL (1.6-2.6); Sodium 141 mmol/L (135-145); Total Protein 7.7 g/dL (6.5-8.0)
--- NOTE | 2023-04-09 15:37 | MHC.EDTECH ---
Patient urine sample collected and sent to lab .
[2023-04-09 15:57] LABS: Appearance Urine Clear; Color Urine Yellow; Glucose Urine UA Negative (Negative); Leukocyte Esterase Urine Trace (Negative); Nitrite Urine Negative (Negative); UMIC TRIGGER UACC YES; Urine Blood Negative (Negative); Urine Ketones Trace mg/dL (Negative); Urine Protein Negative (Neg-Trace)
[2023-04-09 15:59] LABS: Bacteria Urine None Seen (None Seen); Hyaline Casts Urine 0-2 /LPF (0-2); RBC Urine 0-2 /HPF (0-2); Squamous Epithelial Cell Urine 0-2 /HPF (0-2); WBC Urine 0-5 /HPF (0-5)
[2023-04-09] MEDS: traMADoL HCL 50 MG TABLET PO (16:37)
[2023-04-09 18:48] VITALS: BP 100/73; PULSE 96; RESP 20; O2SAT 96
== END 2023-04-09 18:50 | disposition home or self-care (01) ==
PROVIDERS: Physician Assistant; Emergency Provider Student in an Organized Health Care Education/Training Program; PCP Internal Medicine
DX: M54.50 Low back pain, unspecified (principal); R10.9 Unspecified abdominal pain; I10 Essential (primary) hypertension; E78.00 Pure hypercholesterolemia, unspecified; I48.19 Other persistent atrial fibrillation; Z79.01 Long term (current) use of anticoagulants; Z79.899 Other long term (current) drug therapy
CPT/HCPCS: 36415; 70450; 72100; 72125; 73502; 80048; 80076; 81001; 83735; 85025; 85610; 85730; 99283; 99284

== ENCOUNTER → 2023-09-30 15:37 | Outpatient (REF) | payer MEDICARE, SELFPAY ==
--- NOTE | 2023-09-30 15:40 | CA_ITS ---
Transthoracic Echocardiogram Patient (Last, First, Middle): Jese Benavides, Gender: Male Date of : 1955 Age: 68 Procedure Date: 09/30/2023 Procedure Type: Transthoracic Echocardiogram Location: OP Height: 167.64 cm Weight: 97.52 kg BSA: 2.06 m2 Heart Rate: bpm BP: 122 / 80 mmHg Railroad Car Painter: Referring MD: Abhishek Villa MD Dolphin Researcher: Conrad Be MD Symptoms: I77.810 - Thoracic aortic ectasia Study Quality: Fair ECG Rhythm: Atrial Fibrillation Conclusions: - 1. Normal LV ejection fraction of 55-60% with mild LVH with grade 1 diastolic dysfunction 2. Trace aortic regurgitation 3. Mildly dilated ascending aorta at 3.9 cm, slightly lower than before could be technically related 4. Normal RV systolic pressure Findings Left Ventricle Normal left ventricular size and systolic function. There is mildly increased left ventricular wall thickness. The visually estimated ejection fraction is between 55-60%. Spectral Doppler is indicative of an impaired relaxation filling pattern. E/E prime ratio is <8, consistent with normal filling pressures. Evidence suggests grade I (mild) diastolic dysfunction. Right Ventricle The right ventricle was not well visualized. There is normal right ventricular systolic function. Atria The left atrium is mildly dilated. Interatrial shunt cannot be excluded. The right atrium was not well visualized. Aortic Valve The aortic valve was not well visualized. There is mild calcification of the aortic valve. There is no aortic valve stenosis. There is trace (trivial) aortic valve regurgitation. Mitral Valve There is mild anterior and posterior mitral leaflet thickening. There is trace mitral valve regurgitation. There is no mitral valve stenosis. Pulmonic Valve The pulmonic valve was not well visualized. Tricuspid Valve Likely normal tricuspid valve structure and function. There is trace tricuspid valve regurgitation. The right ventricular systolic pressure is normal. The right ventricular systolic pressure is 13 mmHg. Normal right atrial pressure. There is no evidence of pulmonary hypertension. Great Vessels The aorta was not well visualized. The pulmonary artery was not well visualized. There is mild dilatation of the ascending aorta measuring 3.90 cm. Venous The inferior vena cava is normal in size and collapses greater than 50% with inspiration. Pericardium/Pleural There is no evidence of pericardial effusion. Prior Study Comparison No significant change compared to prior study dated: 08/23/2022. Measurements 2D Linear Measurements IVSd: 1.34 0.6-0.9/0.6-1.0 cm LVIDd: 4.88 3.9-5.3/4.2-5.9 cm LVIDd Index: 2.37 2.4-3.2/2.2-3.1 cm/m2 LVIDs: 3.32 2.0-3.6 cm LVPWd: 1.30 0.7-1.1 cm Ao Root: 4.20 2.1-3.5 cm LA Diam: 4.50 2.7-3.8/3.0-4.0 cm LAIDs Index: 2.18 1.5-2.3 cm/m2 LV Mass: 321.41 67-162/88-224 g LV Mass Index: 156.02 43-95/49-115 g/m2 LVOT Diam: 3.10 3.0+(-)1.3 cm 2D Systolic Function EF 4C: 59.10 >55% EF 2C: 50.10 >55% EF BiP: 57.20 >55% Mitral Valve MV Pk E: 0.72 MV Decel Time: 226.00 E'Lateral: 11.40 E'Medial: 10.90 E/E' Med: 6.60 E/E' Lat: 6.40 PHT: 66.00 MVA PHT: 3.33 Decel Amelia: 3.21 Aortic Valve AoV Pk Taran: 0.99 AoV Mn Taran: 0.70 AoV VTI: 0.22 AoV Pk Grad: 4.00 Aov Mn Grad: 2.00 FRANTZ Cont.VTI: 4.78 LVOT LVOT Pk Taran: 0.70 LVOT Mn Taran: 0.52 LVOT VTI: 0.14 LVOT Pk Grad: 2.00 LVOT Mn Grad: 1.00 LVOT Diam: 3.10 LVOT Area: 7.55 Diastolic Function MV Pk E: 0.72 E'Medial: 10.90 E/E' Med: 6.60 E' Laterial: 11.40 E/E' Lat: 6.40 Right Ventricle TAPSE (mm): 31.00 Tricuspid Valve TR Pk Taran: 1.57 TR Pk Grad: 10.00 RA Press: 3.00 RVSP: 13.00 Great Vessels Aorta Ao Root-2D: 4.20 2.0-3.7 cm Ao Asc: 3.90 2.1-3.4 cm Pulmonary Valve PV Pk Taran: 0.73 Peak PV Grad: 2.00 Updated in Other Vendor System with Status of Final Conrad Be MD electronically signed on 10/01/2023 3:20:51 PM with status of Final
== END ==
LOC: HO.CARD 15:37
PROVIDERS: Visit Provider Internal Medicine
DX: I77.810 Thoracic aortic ectasia (principal)
CPT/HCPCS: 93306

== ENCOUNTER → 2023-09-30 15:40 | Outpatient (BNV) | payer MEDICARE, SELFPAY | PROVIDERS: Visit Provider Internal Medicine Cardiovascular Disease | DX: I35.1 Nonrheumatic aortic (valve) insufficiency (principal); I71.21 Aneurysm of the ascending aorta, without rupture | CPT/HCPCS: 93306 ==

== ENCOUNTER 2023-10-21 14:30 | Outpatient (AMB) | payer OTHER, SELFPAY ==
[2023-10-21 14:37] VITALS: BP 90/64; PULSE 81; BMI 36.1
--- NOTE | 2023-10-21 14:37 | A.OFFVIS_ITS ---
Vital Signs 10/21/23 14:37 Height 5 ft 6 in Weight 223 lb 8.78 oz BMI 36.1 BP 90/64 Blood Pressure Location Lt brachial Position Sitting Pulse 81 Intake Visit Reasons: 1 yr s/p echo Gang Worker Required: No Accompanied by: Self / Same As Patient Allergies No Known Allergies [No Known Allergies*] Allergy (Verified 04/09/23 14:30) Medication List - Last Reconciled 10/21/23 by Abhishek Villa MD apixaban (Eliquis) 5 mg PO BID atorvastatin 40 mg PO BEDTIME diltiazem HCl ER 120 mg PO DAILY lisinopril 40 mg PO DAILY multivitamin 1 tab PO DAILY paroxetine HCl 30 mg PO DAILY tramadol 50 mg PO Q6H PRN HPI Comments Details: Jese returns for follow-up regarding atrial fibrillation. In the past, cardioversions have been attempted but failed and hence he is maintained mainly on rate control. He also has central sleep apnea on BiPAP. He states he is doing great. Still working without any issues. No cardiac symptoms whatsoever. [facility] Medical History (Updated 04/10/23 @ 00:00 by Constance Sales) Persistent atrial fibrillation Sleep apnea Elevated cholesterol HTN (hypertension) Atrial fibrillation History of cardioversion Surgical History History of back surgery Family History Father No problems noted. Mother No problems noted. Social History Patient Tobacco Use Status: Never used Tobacco Review of Systems Const Denies chills, Denies fatigue, Denies fever(s), Denies frequent falls, Denies weakness, Denies weight gain and Denies weight loss ENT Denies dizziness Card Denies chest pain, Denies leg edema, Denies lightheadedness, Denies p alpitations, Denies dyspnea and Denies dyspnea on exertion Resp Denies cough, Denies dyspnea and Denies dyspnea on exertion GI Denies hematochezia Musc Denies abnormal gait, Denies muscle weakness, Denies numbness, Denies radiating pain into limb and Denies tingling Neuro Denies abnormal gait, Denies dizziness, Denies frequent falls, Denies numbness, Denies tingling and Denies weakness Endo Denies fatigue and Denies palpitations Physical Exam Vital Signs: Last Vital Signs Pulse 81 10/21/23 14:37 BP 90/64 10/21/23 14:37 BMI result Body Mass Index 36.1 Const General: comfortable and no acute distress Orientation/consciousness: patient oriented x3 HEENT Other: Unremarkable Head: Yes normal to inspection Neck Neck: Yes normal visual inspection Chest Chest palpation & inspection: normal inspection of the chest Resp Auscultation: clear to auscultation bilaterally Cardio Palpation: normal PMI Heart sounds: S1 normal heart sound present, S2 normal heart sound present, no gallops, no murmurs and no rubs GI Palpation (GI): Soft to palpation Back/Spine/Pelvis Other: unremarkable Skin General skin exam: no rashes or lesions noted Neuro General: patient oriented x3 Extrem General: Yes normal to inspection Psych Mental Status: mental status grossly normal Office Procedures EKG Details: EKG shows atrial fibrillation rate of 81/Min. [id number], Complete Assessment & Plan Assessment & Plan (1) Persistent atrial fibrillation: Code(s): I48.19 - Other persistent atrial fibrillation Category: Medical Plan: Will rate control. Remains on diltiazem. Also on anticoagulation. (2) Essential hypertension: Code(s): I10 - Essential (primary) hypertension Category: Medical Plan: Slightly low blood pressure today. Advised him that if it remains like this, may come down on lisinopril. He states on most days it is actually in the normal range. (3) CSA (central sleep apnea): Code(s): G47.31 - Primary central sleep apnea Category: Medical Plan: On BiPAP. (4) Ascending aorta dilatation: Code(s): I77.810 - Thoracic aortic ectasia Category: Medical Plan: In the most recent echocardiogram, ascending aortic size 3.9 cm. Prior to that, 4.1 cm. Could be technical differences. We can recheck this in 2 years or so. Coding Level of Care Code Est Pt Level 4 (08359) Diagnoses Persistent atrial fibrillation I48.19 Essential hypertension I10 CSA (central sleep apnea) G47.31 Ascending aorta dilatation I77.810 CPT Codes EKG - CPT: 32870-[id number], Complete ([id number])
== END 2023-10-21 15:09 | disposition home or self-care (01) ==
PROVIDERS: Visit Provider Internal Medicine
DX: I48.19 Other persistent atrial fibrillation (principal); I10 Essential (primary) hypertension; G47.31 Primary central sleep apnea; I77.810 Thoracic aortic ectasia
CPT/HCPCS: 93010; 99214

== ENCOUNTER → 2023-10-21 14:30 | Outpatient (BNVA) | payer MEDICARE, MEDICAID, SELFPAY | PROVIDERS: Visit Provider Internal Medicine | DX: I48.19 Other persistent atrial fibrillation (principal); I10 Essential (primary) hypertension; I77.810 Thoracic aortic ectasia; G47.31 Primary central sleep apnea; Z79.01 Long term (current) use of anticoagulants; Z79.899 Other long term (current) drug therapy | CPT/HCPCS: 93005; 99212 ==

== ENCOUNTER 2024-11-22 16:05 | Outpatient (AMB) | payer MEDICARE, MEDICAID, SELFPAY ==
--- NOTE | 2024-11-22 16:06 | MHC.PC.OV ---
Vital Signs 11/22/24 16:09 Height 5 ft 6 in Weight 100.698 kg BMI 35.8 BP 120/78 Respiration 18 Pulse 100 Pulse Source Pulse Oximeter Temp 98.0 F Temp Source Temporal Artery Scan Pulse Oximetry (%) 95 Oxygen Delivery Method Room Air Intake Visit Reasons: Routine Certified Retinal Angiographer Required: No Accompanied by: Self / Same As Patient Allergies No Known Allergies [No Known Allergies*] Allergy (Verified 04/09/23 14:30) Medication List - Last Reconciled 11/22/24 by CHALINO Flores apixaban (Eliquis) 5 mg PO BID atorvastatin 40 mg PO BEDTIME diltiazem HCl ER 120 mg PO DAILY fluticasone propionate 50 mcg/actuation intranasal lisinopril 40 mg PO DAILY lorazepam mg PO multivitamin 1 tab PO DAILY paroxetine HCl 30 mg PO DAILY HPI HPI Comments History of Present Illness Details 69-year-old male with history of hypertension, persistent atrial fibrillation, ascending aortic dilatation, central sleep apnea, depression/anxiety, chronic low back pain presents to the office today for management of chronic conditions and to establish care. Hypertension-blood pressure in the office today 120/78. Compliant with diltiazem 120 mg ER and lisinopril 40 mg daily. Persistent atrial fibrillation-anticoagulated with Eliquis 5 mg twice daily. Denies any easy bruisability or bleeding. Rate controlled with diltiazem. Follows with cardiology annually Hyperlipidemia-taking atorvastatin 40 mg daily. Overdue for lipid panel Depression/anxiety-controlled with paroxetine 30 mg daily. Central sleep apnea-compliant with BiPAP Ascending aortic dilatation-stable 4.1 cm on last echocardiogram. Follows with Cardiology Class II obesity- walks often, stocking shelves. Does sit ups and stretches. Overall healthy diet. Concerns: Cyst left hand - not overly bothersome Health maintenance: Last colonoscopy 05/2021 with 10 year follow-up advised. Dr. Pink Due for screening PSA ROS: General: No fevers, malaise, unintentional weight loss Cardiovascular: No chest pain, palpitations, or leg edema Respiratory: No shortness of breath, wheezing, cough Neuro: No headaches, weakness, paresthesias Skin: No rashes or lesions EXAM: Constitutional - Awake and Alert, No apparent distress Eyes - PERRL Cardiovascular - S1S2, irregularly irregular, controlled rate, No edema Respiratory - Normal lung expansion, Normal respiratory effort, No respiratory distress, CTA bilaterally Extremities - no calf tenderness bilaterally, no swelling Skin - Warm/Dry Neurological - Alert & oriented x3 Psychological - Appropriate affect [facility] Medical History (Updated 11/22/24 @ 16:32 by CHALINO Flores) Persistent atrial fibrillation Sleep apnea Elevated cholesterol HTN (hypertension) Atrial fibrillation History of cardioversion Surgical History (Updated 11/19/24 @ 12:43 by Yashira Fajardo) History of colonoscopy (~05/16/21) History of back surgery Family History (Reviewed 10/21/23 @ 14:39 by Megan Kay [facility]) Father No problems noted. Mother No problems noted. Social History (Reviewed 10/21/23 @ 14:39 by Megan Kay [facility]) Patient Tobacco Use Status: Never used Tobacco Questionnaire PHQ-9 Over the last 2 weeks, how often have you been bothered by any of the following problems? 1. Little interest or pleasure in doing things: not at all 2. Feeling down, depressed, or hopeless: not at all 3. Trouble falling or staying asleep, or sleeping too much: not at all 4. Feeling tired or having little energy: not at all 5. Poor appetite or overeating: not at all 6. Feeling bad about yourself - or that you are a failure or have let yourself or your family down: not at all 7. Trouble concentrating on things, such as reading the newspaper or watching television: not at all 8. Moving or speaking so slowly that other people could have noticed. Or the opposite - being so fidgety or restless that you have been moving around a lot more than usual: not at all 9. Thoughts that you would be better off or of hurting yourself in some way: not at all Total score: 0 Source: Developed by Drs. Dawood Cheung, Lorri Bonner, Josesito Allen and colleagues, with an educational jannet from [employer]. Thrive Questionnaire Date Thrive assessed: 11/22/24 I am a: Patient What is your living situation today?: I have a steady place to live Within the past 12 months, did the food you bought not last and you didn't have the money to get more?: Never true Within the past 12 months, did you worry whether your food would run out before you got money to buy more?: Never true Do you have trouble paying for medicines?: No Do you have trouble getting transportation to medical appointments?: No Do you have trouble paying your heating and electricity bill?: No Do you have trouble taking care of your child, family member or friend?: No Do you have trouble with day-to-day activities such as bathing, preparing meals, shopping, managing finances, etc.?: No Are you currently unemployed and looking for a job?: No Are you interested in more education?: No Please select the resources that you would like help with: None THRIVE Score: 0 SINGH-7 AMB Questionnaire SINGH-7 Date SINGH - 7 assessed: 11/22/24 Feeling nervous, anxious, or on edge: 0 = Not at all Not being able to stop or control worryin = Not at all Worrying too much about different things: 0 = Not at all Trouble relaxin = Not at all Being so restless that it is hard to sit still: 0 = Not at all Becoming easily annoyed or irritable: 0 = Not at all Feeling afraid as if something awful might happen: 0 = Not at all Total SINGH-7 score (0-4 normal; 5-9 mild; 10-14 moderate; 15-21 severe): 0 Source: Developed by Drs. Dawood Cheung, Lorri Bonner, Josesito Allen and colleagues, with an educational jannet from [employer]. Physical exam (Primary Care) Vital Signs: Last Vital Signs Temp 98.0 F 11/22/24 16:09 Pulse 100 11/22/24 16:09 Resp 18 11/22/24 16:09 BP 120/78 11/22/24 16:09 Pulse Ox 95 11/22/24 16:09 Oxygen Delivery Method Room Air 11/22/24 16:09 BMI result Body Mass Index 35.8 Tobacco/Smoking Status: Tobacco use Status Patient Tobacco Use Status Never used Tobacco 11/22/24 16:08 Coding Level of Care Code New Pt Level 4 (77866) Complex EM visit Add On G2211 Diagnoses Persistent atrial fibrillation I48.19 Essential hypertension I10 CSA (central sleep apnea) G47.31 Ascending aorta dilatation I77.810 Ganglion cyst M67.40 Assessment & Plan Assessment & Plan (1) Persistent atrial fibrillation: Code(s): I48.19 - Other persistent atrial fibrillation Category: Medical Plan: Rate controlled. Continue Eliquis 5 mg twice daily. Continue diltiazem for rate control. Follow-up with Cardiology (2) Essential hypertension: Code(s): I10 - Essential (primary) hypertension Category: Medical Plan: Controlled. Continue diltiazem, lisinopril 40 mg daily. Low-sodium diet (3) CSA (central sleep apnea): Code(s): G47.31 - Primary central sleep apnea Category: Medical Plan: Continue BiPAP (4) Ascending aorta dilatation: Code(s): I77.810 - Thoracic aortic ectasia Category: Medical Plan: Stable on last echocardiogram at 4.1 cm. Continue following with cardiology as scheduled. Close blood pressure control advised (5) Ganglion cyst: Code(s): M67.40 - Ganglion, unspecified site Category: Medical Plan: Watch for now. Plan Follow-up in the office in 6 months. Labs to be completed following visit today as well as prior to next visit. Orders: Orders Basic Metabolic Panel Today E78.00 - Pure hypercholesterolemia, unspecified, I10 - Essential (primary) hypertension, R73.9 - Hyperglycemia, unspecified Lipid Panel Today E78.00 - Pure hypercholesterolemia, unspecified, I10 - Essential (primary) hypertension, R73.9 - Hyperglycemia, unspecified Prostate Specific Antigen Today E78.00 - Pure hypercholesterolemia, unspecified, I10 - Essential (primary) hypertension, R73.9 - Hyperglycemia, unspecified Complete Blood Count Auto Diff Today E78.00 - Pure hypercholesterolemia, unspecified, I10 - Essential (primary) hypertension, R73.9 - Hyperglycemia, unspecified Hemoglobin A1c Today E78.00 - Pure hypercholesterolemia, unspecified, I10 - Essential (primary) hypertension, R73.9 - Hyperglycemia, unspecified Liver Panel Today E78.00 - Pure hypercholesterolemia, unspecified, I10 - Essential (primary) hypertension, R73.9 - Hyperglycemia, unspecified Basic Metabolic Panel 6 Months E78.00 - Pure hypercholesterolemia, unspecified, I10 - Essential (primary) hypertension Lipid Panel 6 Months E78.00 - Pure hypercholesterolemia, unspecified, I10 - Essential (primary) hypertension
[2024-11-22 16:09] VITALS: BP 120/78; PULSE 100; RESP 18; TEMP 36.7; O2SAT 95; BMI 35.8
--- OUTSIDE RECORDS SUMMARY | 2024-11-22 17:46 | XMS_ITS | Clinical Summary ---
Author Organization [facility] Address [address] [place] [address] Care Team Providers Care Digital Analytics Manager Name Role Phone Pcp, No Primary Care Provider Unavailabl e Allergies No known active allergies Medications Fexofenadine HCl (ADALBERTO ALLERGY PO) Adalberto Allergy 180 MG Oral Tablet ; Start Date: ; End Date: Active aspirin 81 MG EC tablet Aspirin 81 MG Oral Tablet ; Start Date: ; End Date: Active Psyllium (METAMUCIL PO) Metamucil CAPS ; Start Date: ; End Date: Active Multiple Vitamin (MULTIVITAMIN) tablet Take 1 tablet by mouth daily. Active amLODIPine (NORVASC) 5 MG tabletIndication s:HTN (hypertension), benign TAKE ONE TABLET BY MOUTH ONE TIME DAILY 90 tablet 0 6 Active atorvastatin (LIPITOR) 40 MG tabletIndication s:Hypercholester emia Take 1 tablet (40 mg total) by mouth nightly. 30 tablet 0 6 Active PARoxetine (PAXIL) 20 MG tabletIndication s:Depression, unspecified depression type Take 1 tablet (20 mg total) by mouth daily. 15 tablet 0 6 Active lisinopril (PRINIVIL,ZeSTRI L) 40 MG tabletIndication s:Hyperlipidemia Take 1 tablet (40 mg total) by mouth daily. Patient needs an appt for refills on medication 90 tablet 0 7 Active Active Problems Problem Noted Date Diagnosed Date Hyperlipidemia 02/07/2015 Right-sided low back pain without sciatica 02/07 Dysthymic disorder 12/02/2014 Essential hypertension 11/02/2014 Family History Medical History Relation Name Comments Coronary artery disease Father Relation Name Status Comments Father Social History Tobacco Use Types Packs/Day Years Used Date Smoking Tobacco: Never Alcohol Use Standard Drinks/Week Comments Yes 0 (1 standard drink = 0.6 oz pur e alcohol) Sex and Gender Information Value Date Recorded Sex Assigned at Not on file Legal Sex Male 11:35 AM EDT Gender Identity Not on file Sexual Orientation Not on file Last Filed Vital Signs Vital Sign Reading Time Taken Comments Blood Pressure 117/78 08/07/2015 2:41 PM EST Pulse 100 08/07/2015 2:41 PM EST Temperature - - Respiratory Rate 16 11/02/2014 1:53 PM EDT Oxygen Saturation - - Inhaled Oxygen Concentration - - Weight 102 kg (224 lb) 08/07/2015 2:41 PM EST Height - - Body Mass Index - - Plan of Treatment Health Maintenance Due Date Last Done Comments Hepatitis C Virus Screening 1955 DTaP/Tdap/Td Vaccines (1 - Tdap) 1976 Colonoscopy 2002 Pneumococcal Vaccines 50+ (1 of 1 - PCV) 09/11/2007 Zoster (Shingles) Vaccine (1 of 2) 09/11/2007 COVID-19 Vaccine ( - 2023-2 5 season) 2024 Influenza Vaccine 01/07/2025 RSV Vaccine 60 years and old er and Patients (1 - 1-dose 75+ series) 2032 Hepatitis B Vaccines Aged Out No long er eligible based on patient's age to complete this topic Insurance [employer] PPO Care Teams Digital Analytics Manager Relationship Specialty Start Date End Date Pcp, No PCP - General General Medicine 08/02/16
== END 2024-11-22 16:33 | disposition home or self-care (01) ==
LOC: HO.HMCHD 16:06
PROVIDERS: Visit Provider Physician Assistant
DX: I48.19 Other persistent atrial fibrillation (principal); I10 Essential (primary) hypertension; G47.31 Primary central sleep apnea; I77.810 Thoracic aortic ectasia; M67.40 Ganglion, unspecified site

== ENCOUNTER → 2024-11-22 16:05 | Outpatient (BNVA) | payer MEDICARE, MEDICAID, SELFPAY | PROVIDERS: Visit Provider Physician Assistant | DX: I48.19 Other persistent atrial fibrillation (principal); I10 Essential (primary) hypertension; G47.31 Primary central sleep apnea; I77.810 Thoracic aortic ectasia; M67.40 Ganglion, unspecified site; Z79.01 Long term (current) use of anticoagulants; Z79.899 Other long term (current) drug therapy | CPT/HCPCS: 96127; 99202 ==

== ENCOUNTER → 2024-12-14 16:21 | Outpatient (BNVA) | payer MEDICARE, MEDICAID, SELFPAY | PROVIDERS: Visit Provider Physician Assistant | DX: S56.911A Strain of unspecified muscles, fascia and tendons at forearm level, right arm, initial encounter (principal); I10 Essential (primary) hypertension; I48.19 Other persistent atrial fibrillation; W10.9XXA Fall (on) (from) unspecified stairs and steps, initial encounter; Y93.9 Activity, unspecified; Y92.9 Unspecified place or not applicable; Y99.9 Unspecified external cause status | CPT/HCPCS: 99212 ==

== ENCOUNTER → 2024-12-14 16:21 | Outpatient (AMB) | payer MEDICARE, MEDICAID, SELFPAY ==
--- NOTE | 2024-12-14 16:23 | A.OFFPC_ITS ---
Vital Signs 12/14/24 16:26 Height 5 ft 6 in Weight 100.244 kg BMI 35.7 BP 114/82 Blood Pressure Location Lt brachial Position Sitting Respiration 17 Pulse 89 Pulse Source Pulse Oximeter Temp 97.1 F Temp Source Temporal Artery Scan Pulse Oximetry (%) 99 Oxygen Delivery Method Room Air Intake Visit Reasons: [facility] urgent care Video Tape Duplicator Required: No Accompanied by: Self / Same As Patient Allergies No Known Allergies (No Known Allergies*) Allergy (Verified 12/14/24 16:24) HPI HPI Comments History of Present Illness Details 69-year-old male with history of hyperte nsion, persistent atrial fibrillation, ascending aortic dilatation, central sleep apnea, depression/anxiety, chronic low back pain presents to the office today for evaluation of right elbow pain. He presented to urgent Care on 12/13 for evaluation of the pain. Reportedly, he had fallen up the stairs about 1 week ago landing on the right fingers which bent backwards and he felt a pain extending into the medial aspect of the right elbow. He does have full range of motion but states there is significant pain when pushing up against gravity on objects as well as with pronation of the lower arm. While at the urgent Care, x-ray of the right elbow was performed without any osseous abnormalities. He was given a prescription for Voltaren gel but does not feel this is helpful. He has also been using ice. 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 He is looking for work note while his injury heals. ROS: General: No fevers, malaise, unintentional weight loss HEENT: No blurred vision, diplopia. No sore throat, nasal congestion, rhinorrhea, sinus pain, ear pain Cardiovascular: No chest pain, palpitations, or leg edema Respiratory: No shortness of breath, wheezing, cough GI: No abdominal pain, nausea, vomiting, diarrhea, constipation, melena, hematochezia : No dysuria, hematuria, increased urinary frequency, decreased urinary output MSK: See HPI Neuro: No headaches, weakness, paresthesias Skin: No rashes or lesions EXAM: Constitutional - Awake and Alert, No apparent distress Eyes - PERRL Cardiovascular - S1S2, RRR, No edema Respiratory - Normal lung expansion, Normal respiratory effort, No respiratory distress, CTA bilaterally Extremities - no calf tenderness bilaterally. Moderate swelling over the medial aspect of the right elbow with mild ttp. No focal tenderness over the olecranon or medial epicondyle. Full range of motion. Pain with nitroglycerin separator operator strength evaluation Skin - Warm/Dry Neurological - Alert & oriented x3 Psychological - Appropriate affect [facility] Medical History (Updated 12/14/24 @ 16:54 by CHALINO Flores) Persistent atrial fibrillation Sleep apnea Elevated cholesterol HTN (hypertension) Atrial fibrillation History of cardioversion Surgical History (Updated 11/19/24 @ 12:43 by Yashira Fajardo) History of colonoscopy (~05/16/21) History of back surgery Family History Father No problems noted. Mother No problems noted. Social History Patient Tobacco Use Status: Never used Tobacco Questionnaire Thrive Questionnaire Date Thrive assessed: 11/22/24 SINGH-7 AMB Questionnaire SINGH-7 Date SINGH - 7 assessed: 11/22/24 Source: Developed by Drs. Dawood Cheung, Lorri Bonner, Josesito Allen and colleagues, with an educational jannet from [employer]. Physical exam (Primary Care) Vital Signs: Last Vital Signs Temp 97.1 F 12/14/24 16:26 Pulse 89 12/14/24 16:26 Resp 17 12/14/24 16:26 BP 114/82 12/14/24 16:26 Pulse Ox 99 12/14/24 16:26 Oxygen Delivery Method Room Air 12/14/24 16:26 BMI result Body Mass Index 35.7 Tobacco/Smoking Status: Tobacco use Status Patient Tobacco Use Status Never used Tobacco 12/14/24 16:28 Thrive Assessment: Date of Thrive Assessment Date Thrive assessed 11/22/24 12/14/24 16:28 Coding Level of Care Code Est Pt Level 4 (81993) Diagnoses Strain of right elbow S56.911A Assessment & Plan Assessment & Plan (1) Strain of right elbow: Code(s): S56.911A - Strain of unspecified muscles, fascia and tendons at forearm level, right arm, initial encounter Category: Medical Plan: Urgent care report reviewed including x-ray. Recommend RICE. Avoid ibuprofen given anticoagulation. He is also given exercises to perform at home. Work note provided. Should pain persist, advised to follow-up in the office Plan Follow up prn and as scheduled in May
--- OUTSIDE RECORDS SUMMARY | 2024-12-14 16:24 | XMS_ITS | Clinical Summary ---
Author Organization [facility] Address [address] [place] [address] Care Team Providers Care Camp Recreation Specialist Name Role Phone Pcp, No Primary Care [...] this topic Insurance [employer] PPO Care Teams Camp Recreation Specialist Relationship Specialty Start Date End Date Pcp, No PCP - General General Medicine 08/02/16
--- OUTSIDE RECORDS SUMMARY | 2024-12-14 16:24 | XMS_ITS | Patient Health Record ---
Author Organization [facility] Address [address] [place] [address] Care Team Providers Care Program Aide Group Work Name Role Phone Regan Vargas MD Primary Care Provider Steven Keene Jr Unavailable [phone] Allergies No Known Allergies Reason For Referral No Information Medications Medication SIG (Take, Route, Frequency, Duration) Notes Start Date End Date Status Multivitamin - as directed Orally Active Fiber - as directed Orally A ctive Warfarin Sodium 3 MG 1 tablet Orally Onc e a day for 30 day(s) Active MiraLax (colon prep) 17 GM/SCOOP mixed with Gatorade or Crystal Light Orally begin at 5:00 p.m. the day before the procedure for 1 day 03/26/2021 Active PARoxetine HCl 20 MG 1 tablet in the mor cristian Orally Once a day for 30 day(s) Active Lisinopril 40 MG 1 tablet Orally Once a day for 30 day(s) Active Atorvastatin Calcium 40 MG 1 tablet Oral ly Once a day for 30 day(s) Active dilTIAZem HCl ER 120 MG 1 capsule Orally Twice a day for 30 day(s) Active Immunizations Vaccine Route Administration Date Status Comme nts Influenza Unknown 02/07/2021 Administered Social History Tobacco Use: Social History Observation Description Date Details (start date - stop date) Never Smoker NA - NA Tobacco Use/Smoking Question Answer Notes Patient is a nonsmoker Alcohol Screen Question Answer Notes Did you have a drink contain ing alcohol in the past year? Yes How often did you have a dri nk containing alcohol in the past year? 2 to 3 times a week (3 points) How many drinks did you have on a typical day when you were drinking in the past year? 1 or 2 drinks (0 point) How often did you have 6 or more drinks on one occasion in the past year? Never (0 point) Points 3 Interpretation Negative Problems Problem Type SNOMED Code ICD Code Onset Dates Problem Status W/U Status Risk Notes Problem 747174246 Colon cancer screening (Z12.11) Active confirmed Problem 872216505 correction (curre nt) use of anticoagulants (Z79.01) Active confirmed Plan Of Treatment Future Test Test Name Order Date COLONOSCOPY 03/26/2021 Insurance Providers Payer Name Payer Address Payer Phone Subscriber Number Group Number Insured Name Patient Relationship to Insured Coverage Start Date Coverage End Date [facility] [address] [address] [place], [place] [id number] HOWARD ESPINOZA Self - patient is the insured Medical (General) History Medical History History ICD Code Hypertension Atrial fibrillation Elevated cholesterol ELIZABETH/CPAP Surgical History Surgery Date(Month/Year) disc removal
[2024-12-14 16:26] VITALS: BP 114/82; PULSE 89; RESP 17; TEMP 36.2; O2SAT 99; BMI 35.7
== END ==
LOC: HO.HMCHD 16:22
PROVIDERS: Visit Provider Physician Assistant
DX: S56.911A Strain of unspecified muscles, fascia and tendons at forearm level, right arm, initial encounter (principal)

== ENCOUNTER 2025-04-12 14:55 | Outpatient (REF) | payer MEDICARE, SELFPAY ==
[2025-04-12 15:11] LABS: MANUAL DIFF FLAG NO
[2025-04-12 15:28] LABS: Hematocrit 42.9 % (42.0-52.0); Hemoglobin 14.7 g/dl (14.0-18.0); Imm Gran Abs Auto 0.02 X10*3/uL (0.00-0.03); Imm Gran Pct Auto 0.3 % (0.0-0.4); Lymphocytes Absolute Auto 3.0 X10*3/uL (1.2-4.9); Mean Corpuscular HGB Conc 34.3 g/dl (31.0-36.0); Mean Corpuscular Hemoglobin 31.6 pg (27.0-33.0); Mean Corpuscular Volume 92.3 fL (80.0-98.0); NRBC Abs Auto 0.000 X10*3/uL (0.0-0.012); NRBC Pct Auto 0.0 /100WBC (0.0-0.2); Platelet Count 207 X10*3/uL (160-400); Red Blood Count 4.65 X10*6/uL (4.60-5.80); White Blood Count 7.7 X10*3/uL (4.8-10.8)
[2025-04-12 15:54] LABS: Alanine Aminotransferase 40 U/L (0-40); Albumin Level 4.3 g/dL (3.5-5.0); Alkaline Phosphatase 88 U/L (39-117); Anion Gap 11 (12-20); Aspartate Amino Transferase 36 U/L (5-37); Blood Urea Nitrogen 13 mg/dL (9-16); Calcium 8.6 mg/dL (8.4-10.2); Carbon Dioxide 26 mmol/L (22-29); Chloride 103 mmol/L (96-108); Cholesterol 186 mg/dL (<200); Estimated Glomerular Filt Rate > 60; HDL Cholesterol 56 mg/dL (>40); Potassium 3.9 mmol/L (3.3-5.1); Sodium 136 mmol/L (135-145); Total Protein 7.0 g/dL (6.5-8.0); Triglycerides 199 mg/dL (<150)
[2025-04-12 16:15] LABS: Prostate Specific Antigen 1.64 ng/mL (<0.05-4.0)
--- OUTSIDE RECORDS SUMMARY | 2025-04-12 18:00 | XMS_ITS | Encounter Summary ---
Author Organization [address] [address] Care Team Providers Care Convex Grinder Operator Name Role Phone Rafa Padilla MD Primary Care Provider [phone] Pcp, No Primary Care Provider Unavailabl e Encounter Details Date Type Department Care Team (Late st Contact Info) Description 08/02/2015 Scanned Document [address] [place] [id number] Provider, Generic Social History Tobacco Use Types Packs/Day Years Used Date Smoking Tobacco: Never Alcohol Use Standard Drinks/Week Comments Yes 0 (1 standard drink = 0.6 oz pur e alcohol) Sex and Gender Information Value Date Recorded Sex Assigned at Not on file Legal Sex Male 11:35 AM EDT Gender Identity Not on file Sexual Orientation Not on file documented as of this encounter Plan of Treatment Not on file documented as of this encounter Procedures Procedure Name Priority Date/Time Associated Diagnosis Comments LAB RESULT 08/02/2015 documented in this encounter Results * LAB RESULT (08/02/2015) Narrative 08/02/2015 Ordered by an unspecified provider. us Generic Provider HX AMB PROCEDURES Final Result documented in this encounter Visit Diagnoses Not on filedocumented in this encounter Care Teams Convex Grinder Operator Relationship Specialty Start Date End Date Rafa Padilla MD [address] [place] [address] PCP - General Internal Medicine 12/30/14 08/01/16 Pcp, No PCP - General General Medicine 08/02/16 documented as of this encounter
--- OUTSIDE RECORDS SUMMARY | 2025-04-12 18:00 | XMS_ITS | Clinical Summary ---
Author Organization [address] [place] [address] Address [address] [place] [address] Phone Care Team Providers Care Doper Name Role Phone Regan Vargas MD Primary Care Provider Allergies No known active allergies Medications Eliquis 5 mg tablet 01/03/2025 Active atorvastatin (LIPITOR) 40 mg tablet Take 1 tablet (40 mg total) by mouth. Active dilTIAZem CD (CARDIZEM CD) 120 mg 24 hr capsule 11/16/2024 Active fluticasone propionate (FLONASE) 50 mcg/actuation nasal spray 11/30/2024 Active lisinopril (PRINIVIL,ZESTRI L) 40 mg tablet Take 1 tablet (40 mg total) by mouth. Active LORazepam (ATIVAN) 0.5 mg tablet 07/05/2024 Active PARoxetine (PAXIL) 30 mg tablet 01/03/2025 Active Active Problems Problem Noted Date Diagnosed Date Basal cell carcinoma (BCC) of face 02/09/2025 History of basal cell carcinoma 02/09/2025 Anticoagulated 02/09/2025 Encounters Date Type Department Care Team Description 03/09/2025 Telephone Plastic & Reconstructive Surgery [address] [phone] Geri Leyva MA 02/09/2025 3:00 PM EDT Consult Plastic & Reconstructive Surgery [address] [phone] Jack Carrillo PA Basal cell carcinoma (BCC) of face (Primary Dx); History of basal cell carcinoma; Anticoagulated from Last 3 Months Surgical History Surgery Date Site/Laterality Comments BACK SURGERY PROCEDURE: HISTORICAL BACK SURGERY Medical History Medical History Date Comments Essential hypertension DX:Essent ial hypertension Anxiety state DX:Anxiety state Family History Relation Name Status Comments Father Mother Social History Tobacco Use Types Packs/Day Years Used Date Smoking Tobacco: Never Smokeless Tobacco: Never Alcohol Use Standard Drinks/Week Comments Yes 1 (1 standard drink = 0.6 oz pur e alcohol) Sex and Gender Information Value Date Recorded Sex Assigned at Not on file Legal Sex Male 7:50 AM EST Gender Identity Not on file Sexual Orientation Not on file Obstetrics History Last Filed Vital Signs Vital Sign Reading Time Taken Comments Blood Pressure 119/83 02/09/2025 2:54 PM EDT Pulse 79 02/09/2025 2:54 PM EDT Temperature - - Respiratory Rate - - Oxygen Saturation - - Inhaled Oxygen Concentration - - Weight 103 kg (226 lb 9.6 oz) 02/09/2025 2:54 PM EDT Height 166.4 cm (5' 5.5 ) 02/09/2025 2:54 PM EDT Body Mass Index 37.13 02/09/2025 2:54 PM EDT Plan of Treatment Scheduled Procedures Name Priority Associated Diagnoses Date/Ti me EXCISION LESION EAR Basal cell carcinoma (BCC) of face REPAIR LACERATION Basal cell carcinoma (BCC) of face Health Maintenance Due Date Last Done Comments Colorectal Cancer Screening: Colonoscopy 1955 DTaP,Tdap,and Td Vaccines (1 - Tdap) 1976 Pneumococcal Vaccine: 50+ Years (1 of 1 - PCV) 09/11/2007 Depression Screening 06/09/2024 Zoster Vaccines (2 of 2) 01/10/2025 11/15/2024 Cholesterol Screening (Lipid Panel) 01/14/2025 Falls Risk Assessment 01/14/2025 Hepatitis C Screening 01/14/2025 Hypertension/CHF/CAD Annual BMP Blood Test 01/14/2025 Medicare Annual Wellness Visit 01/14/2025 Social Influencers of Health Screening 01/14/2025 COVID-19 Vaccine (3 - season) 2025 10/02/2020, 09/04/2020 Influenza Vaccine (#1) 2025 4, 04/07/2023, 02/25/2022, Additional history exists RSV Immunization Adult Patients (1 - 1-dose 75+ series) 2032 HIB Vaccines Aged Out No longer eligi ble based on patient's age to complete this topic HPV Vaccines Aged Out No longer eligi ble based on patient's age to complete this topic Hepatitis A Vaccines Aged Out No long er eligible based on patient's age to complete this topic Hepatitis B Vaccines Aged Out No long er eligible based on patient's age to complete this topic IPV Vaccines Aged Out No longer eligi ble based on patient's age to complete this topic MMR Vaccines Aged Out No longer eligi ble based on patient's age to complete this topic Meningococcal ACWY Vaccine Aged Out N o longer eligible based on patient's age to complete this topic Meningococcal B Vaccine Aged Out No l onger eligible based on patient's age to complete this topic RSV Immunization Patients Under 20 months Aged Out No longer eligible based on patient's age to complete this topic Varicella Vaccines Aged Out No longer eligible based on patient's age to complete this topic Insurance [employer] MEDICARE Care Teams Doper Relationship Specialty Start Date End Date Regan Vargas MD [address] [place] [address] Dr Mckay [place] PCP - General Internal Medicine 05/30/20
--- OUTSIDE RECORDS SUMMARY | 2025-04-12 18:00 | XMS_ITS | Clinical Summary ---
Author Organization [facility] Address [address] [place] [address] Care Team Providers Care Technician'S Helper Name Role Phone Pcp, No Primary Care [...] Health Maintenance Due Date Last Done Comments Advance Care Planning 1955 Hepatitis C Virus Screening 1955 DTaP/Tdap/Td Vaccines (1 - Tdap) 1976 Colonoscopy 2002 Pneumococcal Vaccines 50+ (1 of 1 - PCV) 09/11/2007 RSV Vaccine 50 years and old er and Patients (1 - Risk 50-74 years 1-dose series) 09/11/2007 Zoster (Shingles) Vaccine (1 of 2) 09/11/2007 Influenza Vaccine 01/07/2025 COVID-19 Vaccine ( - 2023-2 5 season) 2025 Hepatitis B Vaccines Aged Out No long er eligible based on patient's age to complete this topic Insurance [employer] PPO Care Teams Technician'S Helper Relationship Specialty Start Date End Date Pcp, No PCP - General General Medicine 08/02/16
--- OUTSIDE RECORDS SUMMARY | 2025-04-12 18:00 | XMS_ITS | Encounter Summary ---
Author Organization [facility] Address [address] [place] [address] Care Team Providers Care Print Project Manager Name Role Phone Regan Vargas MD Primary Care Provider [phone] Reason for Visit * Reason Onset Date Comments Procedure 03/09/2025 Procedure cancel led Encounter Details Date Type Department Care Team (Late st Contact Info) Description 03/09/2025 Telephone Plastic & Reconstructive Surgery [facility] [address] [place] [phone] Geri Leyva MA Social History Tobacco Use Types Packs/Day Years [...] on file documented as of this encounter Progress Notes * Geri Leyva MA - 03/09/2025 10:31 AM EDT Left voicemail for patient to make him aware his surgery and post op will be cancelled as Dr. Hagen out on medical leave. We will call him to reschedule when we have more information. documented in this encounter Plan of Treatment Scheduled Procedures Name Priority Associated Diagnoses Date/Ti me EXCISION LESION EAR Basal cell carcinoma (BCC) of face REPAIR LACERATION Basal cell carcinoma (BCC) of face documented as of this encounter Visit Diagnoses Not on filedocumented in this encounter Care Teams Print Project Manager Relationship Specialty Start Date End Date Regan Vargas MD [address] [facility] [address] Mckay [place] PCP - General Internal Medicine 05/30/20 documented as of this encounter
--- OUTSIDE RECORDS SUMMARY | 2025-04-12 18:00 | XMS_ITS | Encounter Summary ---
Author Organization [facility] Address [address] [place] [address] Care Team Providers Care Trimmer Helper Name Role Phone Rafa Padilla MD Primary Care Provider Pcp, No Primary Care Provider Unavailabl e Reason for Visit * Reason Comments Medication Refill Encounter Details Date Type Department Care Team (Late st Contact Info) Description 05/06/2016 Refill [facility] [address] [phone] Jessie Alvarenga PA 100 [facility] 101 [place] [address] Hypercholesteremia; Depression Social History Tobacco Use Types Packs/Day Years [...] on file documented as of this encounter Visit Diagnoses Diagnosis Hypercholesteremia Pure hypercholesterolemia Depression Depressive disorder, not elsewhere classified documented in this encounter Care Teams Trimmer Helper Relationship Specialty Start Date End Date Rafa Padilla MD [address] [place] [address] PCP - General Internal Medicine 12/30/14 08/01/16 Pcp, No PCP - General General Medicine 08/02/16 documented as of this encounter
--- OUTSIDE RECORDS SUMMARY | 2025-04-12 18:00 | XMS_ITS | Encounter Summary ---
Author Organization [address] [address] Care Team Providers Care Media Center Assistant Name Role Phone Rafa Padilla MD Primary Care Provider Pcp, No Primary Care Provider Unavailabl e Encounter Details Date Type Department Care Team (Late st Contact Info) Description 01/31/2015 Scanned Document [address] [place] [phone] Provider, Generic Social History Tobacco Use Types [...] Priority Date/Time Associated Diagnosis Comments LAB RESULT 02/07/2015 LAB RESULT 01/31/2015 documented in this encounter Results * LAB RESULT (02/07/2015) Narrative 02/07/2015 Ordered by an unspecified provider. us Generic Provider HX AMB PROCEDURES Final Result * LAB RESULT (01/31/2015) Narrative 01/31/2015 Ordered by an unspecified provider. us Generic Provider HX AMB PROCEDURES Final Result documented in this encounter Visit Diagnoses Not on filedocumented in this encounter Care Teams Media Center Assistant Relationship Specialty Start Date End Date Rafa Padilla MD [address] [place] [address] PCP - General Internal Medicine 12/30/14 08/01/16 Pcp, No PCP - General General Medicine 08/02/16 documented as of this encounter
--- OUTSIDE RECORDS SUMMARY | 2025-04-12 18:00 | XMS_ITS | Encounter Summary ---
Author Organization [address] [address] Care Team Providers Care Inspector Rubber Stamp Die Name Role Phone Pcp, No Primary Care Provider Unavailabl e Encounter Details Date Type Department Care Team (Late st Contact Info) Description 08/02/2016 Scanned Document [address] [phone] Pcp, No Social History Tobacco Use Types Packs/Day Years [...] on filedocumented in this encounter Care Teams Inspector Rubber Stamp Die Relationship Specialty Start Date End Date Pcp, No PCP - General General Medicine 08/02/16 documented as of this encounter
--- OUTSIDE RECORDS SUMMARY | 2025-04-12 18:00 | XMS_ITS | Patient Health Record ---
Author Organization [facility] Address [address] [place] [address] Care Team Providers Care Blueprint Duplicator Name Role Phone Alicia (RETIRED) Regan CALABRESE Primary Care Provide Steven Vega Jr Unavailable [phone] Allergies No Known Allergies Reason For Referral No Information Medications Medication SIG (Take, Route, Frequency, Duration) Notes Start Date End Date Status Multivitamin - as directed Orally Active Fiber - as directed Orally A ctive Warfarin Sodium 3 MG 1 tablet Orally Onc e a day; Duration: 30 day(s) Active MiraLax (colon prep) 17 GM/SCOOP mixed with Gatorade or Crystal Light Orally begin at 5:00 p.m. the day before the procedure; Duration: 1 day 03/26/2021 Active PARoxetine HCl 20 MG 1 tablet in the mor cristian Orally Once a day; Duration: 30 day(s) Active Lisinopril 40 MG 1 tablet Orally Once a day; Duration: 30 day(s) Active Atorvastatin Calcium 40 MG 1 tablet Oral ly Once a day; Duration: 30 day(s) Active dilTIAZem HCl ER 120 MG 1 capsule Orally Twice a day; Duration: 30 day(s) Active Immunizations Vaccine Route Administration [...] Problem Status W/U Status Risk Notes Problem Colon cancer screening (524318852) Colon cancer screening (Z12.11) Active confirmed Problem Long-term current use of anticoagulant (641596675) group home (current) use of anticoagulants (Z79.01) Active confirmed Plan Of Treatment Future Test Test Name Order Date COLONOSCOPY 03/26/2021 Insurance Providers Payer Name Payer Address Payer Phone Subscriber Number Group Number Insured Name Patient Relationship to Insured Coverage Start Date Coverage End Date [facility] [address] [address] [place], [place] [id number] HOWARD ESPINOZA Self - patient is the insured Medical (General) History Medical History History ICD Code Hypertension Atrial fibrillation Elevated cholesterol ELIZABETH/CPAP Surgical History Surgery Date(Month/Year) disc removal
--- OUTSIDE RECORDS SUMMARY | 2025-04-12 18:00 | XMS_ITS | Encounter Summary ---
Author Organization [address] [address] Care Team Providers Care Dominatrix Name Role Phone Rafa Padilla MD Primary Care Provider [phone] Pcp, No Primary Care Provider Unavailabl e Encounter Details Date Type Department Care Team (Late st Contact Info) Description 06/16/2014 Scanned Document [address] [place] [phone] Provider, Generic Social History Tobacco Use Types Packs/Day Years Used Date Smoking Tobacco: Never Assessed Sex and Gender Information Value Date Recorded Sex Assigned at Not on file Legal Sex Male 11:35 AM EDT Gender Identity Not on file Sexual Orientation Not on file documented as of this encounter Plan of Treatment Not on file documented as of this encounter Procedures Procedure Name Priority Date/Time Associated Diagnosis Comments LAB RESULT 06/16/2014 documented in this encounter Results * LAB RESULT (06/16/2014) Narrative 06/16/2014 Ordered by an unspecified provider. us Generic Provider HX AMB PROCEDURES Final Result documented in this encounter Visit Diagnoses Not on filedocumented in this encounter Care Teams Dominatrix Relationship Specialty Start Date End Date Rafa Padilla MD [address] [place] [address] PCP - General Internal Medicine 12/30/14 08/01/16 Pcp, No PCP - General General Medicine 08/02/16 documented as of this encounter
== END 2025-04-12 14:56 | disposition home or self-care (01) ==
LOC: HO.LAB 14:55
PROVIDERS: PCP Physician Assistant; Visit Provider Physician Assistant
DX: I10 Essential (primary) hypertension (principal); E78.00 Pure hypercholesterolemia, unspecified; R73.9 Hyperglycemia, unspecified; Z12.5 Encounter for screening for malignant neoplasm of prostate
CPT/HCPCS: 36415; 80048; 80061; 80076; 83036; 84153; 85025

== ENCOUNTER 2025-05-23 15:01 | Outpatient (AMB) | payer MEDICARE, MEDICAID, SELFPAY ==
--- NOTE | 2025-05-23 15:08 | MHC.PC.OV ---
Vital Signs 05/23/25 15:10 Height 5 ft 6 in Weight 104.553 kg BMI 37.2 BP 120/82 Blood Pressure Location Lt brachial Position Sitting Respiration 16 Pulse 93 Pulse Source Pulse Oximeter Temp 97.1 F Temp Source Temporal Artery Scan Pulse Oximetry (%) 97 Oxygen Delivery Method Room Air Intake Visit Reasons: 6 Month F/U Grocery Clerk Stocking Required: No Accompanied by: Self / Same As Patient Allergies No Known Allergies (No Known Allergies*) Allergy (Verified 05/23/25 15:09) Tobacco use date assessed: 05/23/25 Fall risk assessment: No Falls in past year Last assessed Fall Risk: 05/23/25 Dental Screening Dental Screen Date: 05/23/25 Did you have a dental visit in the last 12 months?: Yes Did you have a dental problem in the last 6 months where you did not have access to dental care?: No Was dental information given to patient?: Patient has dentist HPI HPI Comments History of Present Illness Details 69-year-old male with history of hypertension, persistent atrial fibrillation, ascending aortic dilatation, central sleep apnea, depression/anxiety, chronic low back pain presents to the office today for management of chronic conditions and to establish care. Hypertension-blood pressure in the office today 120/82. Compliant with diltiazem 120 mg ER and lisinopril 40 mg daily. Persistent atrial fibrillation-anticoagulated with Eliquis 5 mg twice daily. Denies any easy bruisability or bleeding. Rate controlled with diltiazem. Follows with cardiology annually Hyperlipidemia-taking atorvastatin 40 mg daily. LDL 90 Depression/anxiety-controlled with paroxetine 30 mg daily. Follows with Dr. William. Lorazepam prn, very rare use Central sleep apnea-compliant with BiPAP Ascending aortic dilatation-stable 4.1 cm on last echocardiogram. Follows with Cardiology every other year Prediabetes- A1c 6.1%. Class II obesity- Has not been exercising much. Does have a gym membership and is also going to the senior [employer] which has a new exercise room. BCC- following with [facility]. Concerns: None Health maintenance: Last colonoscopy 05/2021 with 10 year follow-up advised. Dr. Pink PSA up-to-date ROS: see hpi EXAM: Constitutional - Awake and Alert, No apparent distress Eyes - PERRL Cardiovascular - S1S2, irregularly irregular, controlled rate, No edema Respiratory - Normal lung expansion, Normal respiratory effort, No respiratory distress, CTA bilaterally Extremities - no calf tenderness bilaterally, no swelling Skin - Warm/Dry. Shiny erythematous lesion R cheek Neurological - Alert & oriented x3 Psychological - Appropriate affect [facility] Medical History (Updated 05/23/25 @ 15:52 by CHALINO Flores) Prediabetes Basal cell carcinoma Persistent atrial fibrillation Sleep apnea Elevated cholesterol HTN (hypertension) Atrial fibrillation History of cardioversion Surgical History (Updated 11/19/24 @ 12:43 by Yashira Fajardo) History of colonoscopy (~05/16/21) History of back surgery Family History Father No problems noted. Mother No problems noted. Social History Housing: House Patient Tobacco Use Status: Never used Tobacco e-Cigarette/Vaping Use: Never Used Current occupational status: retired Questionnaire Thrive Questionnaire Date Thrive assessed: 11/22/24 AUDIT C Alcohol Use Questionnaire (AUDIT-C) 1. How often do you have a drink containing alcohol?: Monthly or less 2. How many drinks containing alcohol do you have on a typical day when you are drinking?: 1 or 2 3. How often do you have six or more drinks on one occasion?: Never Total Score: 1 SINGH-7 AMB Questionnaire SINGH-7 Date SINGH - 7 assessed: 11/22/24 Source: Developed by Drs. Dawood Cheung, Lorri Bonner, Josesito Allen and colleagues, with an educational jannet from [employer]. Physical exam (Primary Care) Vital Signs: Last Vital Signs Temp 97.1 F 05/23/25 15:10 Pulse 93 05/23/25 15:10 Resp 16 05/23/25 15:10 BP 120/82 05/23/25 15:10 Pulse Ox 97 05/23/25 15:10 Oxygen Delivery Method Room Air 05/23/25 15:10 BMI result Body Mass Index 37.2 Tobacco/Smoking Status: Tobacco use Status Tobacco use date assessed 05/23/25 05/23/25 15:14 Patient Tobacco Use Status Never used Tobacco 05/23/25 15:14 e-Cigarette/Vaping Use Never Used 05/23/25 15:14 Thrive Assessment: Date of Thrive Assessment Date Thrive assessed 11/22/24 05/23/25 15:14 Coding Level of Care Code Est Pt Level 4 (38194) Add On Problem Visit Only Diagnoses Basal cell carcinoma C44.91 Essential hypertension I10 Persistent atrial fibrillation I48.19 Elevated cholesterol E78.00 CSA (central sleep apnea) G47.31 Assessment & Plan Assessment & Plan (1) Basal cell carcinoma: Code(s): C44.91 - Basal cell carcinoma of skin, unspecified Category: Medical Plan: Follow up with [facility] as scheduled for [facility]. Continue following with [facility] (2) Essential hypertension: Code(s): I10 - Essential (primary) hypertension Category: Medical Plan: Controlled. Continue with verapamil and lisinopril. Renal function electrolyte levels normal (3) Persistent atrial fibrillation: Code(s): I48.19 - Other persistent atrial fibrillation Category: Medical Plan: Rate controlled. Continue on Eliquis for anticoagulation as well as diltiazem for rate (4) Elevated cholesterol: Code(s): E78.00 - Pure hypercholesterolemia, unspecified Category: Medical Plan: At goal. Continue with atorvastatin (5) CSA (central sleep apnea): Code(s): G47.31 - Primary central sleep apnea Category: Medical Plan: Continue with BiPAP and follow with sleep Medicine Plan Discussed weight gain of about 10 lb since last visit. Recommend diet lower in calories with increased protein, fruits, vegetables and limiting refined sugars, simple carbohydrates, highly processed foods. Recommend moderate intensity exercise for at least 150 minutes weekly. Discussed that compliance with weight loss efforts will decrease the likelihood of prediabetes progressing to type 2 diabetes and can also help with his sleep apnea. Orders: Orders Liver Panel 6 Months G47.31 - Primary central sleep apnea, I10 - Essential (primary) hypertension, R73.03 - Prediabetes Hemoglobin A1c 6 Months G47.31 - Primary central sleep apnea, I10 - Essential (primary) hypertension, R73.03 - Prediabetes Basic Metabolic Panel 6 Months G47.31 - Primary central sleep apnea, I10 - Essential (primary) hypertension, R73.03 - Prediabetes Lipid Panel 6 Months G47.31 - Primary central sleep apnea, I10 - Essential (primary) hypertension, R73.03 - Prediabetes
[2025-05-23 15:10] VITALS: BP 120/82; PULSE 93; RESP 16; TEMP 36.2; O2SAT 97; BMI 37.2
--- OUTSIDE RECORDS SUMMARY | 2025-05-23 21:36 | XMS_ITS | Encounter Summary ---
Author Organization [address] [address] Care Team Providers Care Keypunch Operators Supervisor Name Role Phone Rafa Padilla MD Primary Care Provider [phone] Pcp, No Primary Care Provider Unavailabl e Encounter Details Date Type Department Care Team (Late st Contact Info) Description 08/02/2015 Scanned Document [address] [place] [phone] Provider, Generic Social History Tobacco Use Types [...] on filedocumented in this encounter Care Teams Keypunch Operators Supervisor Relationship Specialty Start Date End Date Rafa Padilla MD [address] [place] [address] PCP - General Internal Medicine 12/30/14 08/01/16 Pcp, No PCP - General General Medicine 08/02/16 documented as of this encounter
--- OUTSIDE RECORDS SUMMARY | 2025-05-23 21:36 | XMS_ITS | Clinical Summary ---
Author Organization [address] [place] [address] [place] [phone] Phone Care Team Providers Care Seat Mender Name Role Phone Regan Vargas MD Primary Care Provider [phone] Allergies No known active allergies Medications Eliquis [...] Description 03/09/2025 Telephone Plastic & Reconstructive Surgery - [place] [address] [phone] Geri Leyva MA from Last 3 Months Surgical History Surgery [...] Influencers of Health Screening 01/14/2025 COVID-19 Vaccine ( season) 2025 10/02/2020, 09/04/2020 Influenza Vaccine (#1) 2025 , 04/07/2023, 02/25/2022, Additional history exists RSV Immunization [...] topic Insurance [employer] MEDICARE Care Teams Seat Mender Relationship Specialty Start Date End Date Regan Vargas MD [address] [place] [address] Dr Mckay [place] PCP - General Internal Medicine 05/30/20
--- OUTSIDE RECORDS SUMMARY | 2025-05-23 21:36 | XMS_ITS | Encounter Summary ---
Author Organization [address] [address] Care Team Providers Care Clinical Research Coordinator Name Role Phone Rafa Padilla MD Primary Care Provider [phone] Pcp, No Primary Care Provider Unavailabl e Encounter Details Date Type Department Care Team (Late st Contact Info) Description 01/31/2015 Scanned Document [address] [place] [phone] Provider, Generic Social History Tobacco Use Types [...] on filedocumented in this encounter Care Teams Clinical Research Coordinator Relationship Specialty Start Date End Date Rafa Padilla MD [address] [place] [address] PCP - General Internal Medicine 12/30/14 08/01/16 Pcp, No PCP - General General Medicine 08/02/16 documented as of this encounter
--- OUTSIDE RECORDS SUMMARY | 2025-05-23 21:36 | XMS_ITS | Encounter Summary ---
Author Organization [address] [address] Care Team Providers Care Hot Packer Name Role Phone Rafa Padilla MD Primary Care Provider Pcp, No Primary Care Provider Unavailabl e Encounter Details Date Type Department Care Team (Late st Contact Info) Description 06/16/2014 Scanned Document [address] [place] [phone] Provider, Generic Social History Tobacco Use Types [...] on filedocumented in this encounter Care Teams Hot Packer Relationship Specialty Start Date End Date Rafa Padilla MD [address] [place] [address] PCP - General Internal Medicine 12/30/14 08/01/16 Pcp, No PCP - General General Medicine 08/02/16 documented as of this encounter
--- OUTSIDE RECORDS SUMMARY | 2025-05-23 21:36 | XMS_ITS | Encounter Summary ---
Author Organization [facility] Address [address] [place] [address] Care Team Providers Care Strip Presser Name Role Phone Pcp, No Primary Care Provider Unavailabl e Encounter Details Date Type Department Care Team (Late st Contact Info) Description 08/02/2016 Scanned Document [address] [phone] Pcp, No Social History Tobacco Use Types [...] on filedocumented in this encounter Care Teams Strip Presser Relationship Specialty Start Date End Date Pcp, No PCP - General General Medicine 08/02/16 documented as of this encounter
--- OUTSIDE RECORDS SUMMARY | 2025-05-23 21:36 | XMS_ITS | Clinical Summary ---
Author Organization Formerly [facility] Address [address] [place] [address] Care Team Providers Care Case Maker Name Role Phone Pcp, No Primary Care [...] Influenza Vaccine 01/07/2025 COVID-19 Vaccine ( - 2024-2 6 season) 2025 Hepatitis B Vaccines Aged Out No long er eligible based on patient's age to complete this topic Insurance [employer] PPO Care Teams Case Maker Relationship Specialty Start Date End Date Pcp, No PCP - General General Medicine 08/02/16
== END 2025-05-23 15:57 | disposition home or self-care (01) ==
LOC: HO.HMCHD 15:02
PROVIDERS: Visit Provider Physician Assistant
DX: C44.91 Basal cell carcinoma of skin, unspecified (principal); I10 Essential (primary) hypertension; I48.19 Other persistent atrial fibrillation; E78.00 Pure hypercholesterolemia, unspecified; G47.31 Primary central sleep apnea

== ENCOUNTER → 2025-05-23 15:01 | Outpatient (BNVA) | payer MEDICARE, SELFPAY | PROVIDERS: Visit Provider Physician Assistant | DX: C44.91 Basal cell carcinoma of skin, unspecified (principal); I10 Essential (primary) hypertension; I48.19 Other persistent atrial fibrillation; E78.00 Pure hypercholesterolemia, unspecified; G47.31 Primary central sleep apnea; Z99.89 Dependence on other enabling machines and devices; R73.03 Prediabetes; E66.9 Obesity, unspecified; F32.A Depression, unspecified; F41.9 Anxiety disorder, unspecified; Z79.899 Other long term (current) drug therapy; Z79.01 Long term (current) use of anticoagulants | CPT/HCPCS: 99212 ==